=== PATIENT | female | born 1985 | race Caucasian/White ===

== ENCOUNTER 2016-09-18 19:00 | Emergency (ER) | payer OTHER ==
[2016-09-18 19:16] VITALS: BP 98/56
[2016-09-18] MEDS ORDERED: Alum Hydrox/Mag Hydrox/Simeth 30 ML, Lidocaine 2% 15 ML PO STA ×2 (19:55)
--- NOTE | 2016-09-18 20:40 | EDM.PDOC ---
ED HPI Trauma - General Chief Complaint: Upper Extremity Injury/Pain Stated Complaint: PAIN ON RIGHT SIDE OF NECK INTO WRIST Time Seen by Provider: 09/18/16 19:31 Source: Reports: Patient, RN notes reviewed History Limitations: Reports: No limitations - History of Present Illness INITIAL COMMENTS - FREE TEXT/NARRATIVE: The patient states that she is at approximately 14 weeks gestation. She states that she woke around 04:00 yesterday morning, 09/17/2016 with pain on the right side of her neck, extending to her right shoulder. It has since extended down to her right wrist. It is sharp in character, and constant. She has not identified any modifiers, such as with head/neck position. She also developed epigastric pain whenever she takes a deep breath, yesterday, 2016. She also mentioned in passintg that her right hand has been feeling tingling/numb, on and off, for the past several weeks. She reports morning sickness, adequately treated with Diclegis. She has frequent constipation. No recent fever, diarrhea, or urinary symptoms. No prior similar symptoms. 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: Polycystic Ovaries, Other OB/BYN History: Musculoskeletal History: Reports: Other (see below) (Desai cyst) Oncologic (Cancer) History: Reports: Cervix - Past Surgical History HEENT Surgical History: Reports: Oral surgery ([place] teeth extraction), Tonsillectomy GI Surgical History: Reports: EGD Female Surgical History: Reports: LEEP Musculoskeletal Surgical History: Reports: ORIF Social & Family History - Family History Family Medical History: Noncontributory Cardiac: Reports: Blood clots/VTE/DVT - Tobacco Use Smoking Status *Q: Current Some Day Smoker Years of Tobacco use: 5 Packs/Tins Daily: 0.1 Used Tobacco, but Quit: No Month Tobacco Last Used: 2 Second Hand Smoke Exposure: No - Caffeine Use Caffeine Use: Reports: None - Alcohol Use Alcohol Use History: No Days Per Week of Alcohol Use: 0 - Recreational Drug Use Recreational Drug Use: No - Living Situation & Occupation Living situation: Reports: , with spouse, with family 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) Review of Systems - Review of Systems Review Of Systems: See Below Constitutional: Reports: no symptoms Eyes: Reports: no symptoms Ears: Reports: no symptoms Nose: Reports: no symptoms Mouth/Throat: Reports: no symptoms Respiratory: Reports: No Symptoms Cardiovascular: Reports: no symptoms GI/Abdominal: Reports: Nausea (Morning sickness), Vomiting (Morning sickness) Genitourinary: Reports: no symptoms Musculoskeletal: Reports: no symptoms Skin: Reports: no symptoms Neurological: Reports: No Symptoms Psychiatric: Reports: no symptoms Trauma Exam - Physical Exam Exam: See Below Exam Limited By: No limitations General Appearance: Reports: alert, WD/WN, no apparent distress Head: Reports: atraumatic, normocephalic Eyes: bilateral eye: EOMI, normal inspection Ears: Reports: normal external exam, hearing grossly normal Nose: Reports: normal inspection, no blood Throat/Mouth: Reports: Normal inspection, Normal lips, Normal voice, No airway compromise Neck: Reports: non-tender, full range of motion, normal alignment, normal inspection, other (No exacerbation of symptoms with turning the head fully to the left or right, causing the chin to the chest, or fully extending the head. No exacerbation of symptoms with compressing the cervical spine.) Respiratory Exam: Reports: no respiratory distress, lungs clear, normal breath sounds Cardiovascular: Reports: normal peripheral pulses, regular rate, rhythm, no edema, no gallop, no JVD, no murmur, no rub GI/Abdominal: Reports: normal bowel sounds, soft, non tender, no organomegaly, no distention, no abnormal bruit, no mass, other (The patient confirms that her pain is in the epigastric region, but her abdomen is entirely nontender) Back: Reports: full range of motion, normal inspection, non-tender. Denies: CVA tenderness (R), CVA tenderness (L) Extremities: Reports: no evidence of injury, normal range of motion, non-tender , no pedal edema Neurologic: Reports: no motor/sensory deficits, alert, oriented x 3 Skin: Reports: Normal color, Warm/dry Course - Vital Signs Last Recorded V/S: Last Vital Signs Temp 37.1 C 09/18/16 19:11 Pulse 95 09/18/16 19:11 Resp 18 09/18/16 19:11 BP 98/56 L 09/18/16 19:11 Pulse Ox 97 09/18/16 19:11 - Orders/Labs/Meds Orders: Active Orders 24 hr Category Date Time Status CULTURE URINE [RM] Stat Lab 09/18/16 21:14 Received Labs: Laboratory Tests 09/18/16 09/18/16 09/18/16 Range/Units 21:14 21:32 21:32 WBC 12.34 H (3.98-10.04) K/mm3 RBC 3.52 L (3.98-5.22) M/mm3 Hgb 10.6 L (11.2-15.7) gm/L Hct 31.6 L (34.1-44.9) % MCV 89.8 (79.4-94.8) fl MCH 30.1 (25.6-32.2) pg MCHC 33.5 (32.2-35.5) g/dl RDW Std Deviation 41.1 (36.4-46.3) fL Plt Count 275 (182-369) K/mm3 MPV 9.5 (9.4-12.3) fl Neutrophils % (Manual) 56 (40-60) % Band Neutrophils % 4 (0-10) % Lymphocytes % (Manual) 34 (20-40) % Atypical Lymphs % 0 % Monocytes % (Manual) 1 L (2-10) % Eosinophils % (Manual) 4 (0.7-5.8) % Basophils % (Manual) 1 (0.1-1.2) Toxic Granulation Few Platelet Estimate Adequate RBC Morph Comment Normal PT 10.1 (8.0-13.0) SECONDS INR 0.93 Sodium (136-145) mEq/L Potassium (3.5-5.1) mEq/L Chloride (98-107) mEq/L Carbon Dioxide (21-32) mEq/L Anion Gap (5-15) BUN (7-18) mg/dL Creatinine (0.55-1.02) mg/dL Est Cr Clr Drug Dosing mL/min Estimated GFR (MDRD) (>60) mL/min BUN/Creatinine Ratio (14-18) Glucose (74-106) mg/dL Calcium (8.5-10.1) mg/dL Urine Color Yellow (Yellow) Urine Appearance Slt cloudy H (Clear) Urine pH 7.0 (5.0-8.0) Ur Specific [place] 1.015 (1.005-1.030) Urine Protein Negative (Negative) Urine Glucose (UA) Negative (Negative) Urine Ketones Negative (Negative) Urine Occult Blood Negative (Negative) Urine Nitrite Negative (Negative) Urine Bilirubin Negative (Negative) Urine Urobilinogen 0.2 (0.2-1.0) Ur Leukocyte Esterase 2+ H (Negative) Urine RBC 0-5 (0-5) /hpf Urine WBC 40-50 H (0-5) /hpf Ur Squamous Epith Cells 40-50 H (0-5) /hpf Urine Bacteria Moderate H (FEW) /hpf Urine Mucus Not seen (FEW) /hpf 09/18/16 Range/Units 21:32 WBC (3.98-10.04) K/mm3 RBC (3.98-5.22) M/mm3 Hgb (11.2-15.7) gm/L Hct (34.1-44.9) % MCV (79.4-94.8) fl MCH (25.6-32.2) pg MCHC (32.2-35.5) g/dl RDW Std Deviation (36.4-46.3) fL Plt Count (182-369) K/mm3 MPV (9.4-12.3) fl Neutrophils % (Manual) (40-60) % Band Neutrophils % (0-10) % Lymphocytes % (Manual) (20-40) % Atypical Lymphs % % Monocytes % (Manual) (2-10) % Eosinophils % (Manual) (0.7-5.8) % Basophils % (Manual) (0.1-1.2) Toxic Granulation Platelet Estimate RBC Morph Comment PT (8.0-13.0) SECONDS INR Sodium 138 (136-145) mEq/L Potassium 3.9 (3.5-5.1) mEq/L Chloride 105 (98-107) mEq/L Carbon Dioxide 25 (21-32) mEq/L Anion Gap 11.9 (5-15) BUN 7 (7-18) mg/dL Creatinine 0.6 (0.55-1.02) mg/dL Est Cr Clr Drug Dosing 119.47 mL/min Estimated GFR (MDRD) > 60 (>60) mL/min BUN/Creatinine Ratio 11.7 L (14-18) Glucose 83 (74-106) mg/dL Calcium 8.7 (8.5-10.1) mg/dL Urine Color (Yellow) Urine Appearance (Clear) Urine pH (5.0-8.0) Ur Specific [place] (1.005-1.030) Urine Protein (Negative) Urine Glucose (UA) (Negative) Urine Ketones (Negative) Urine Occult Blood (Negative) Urine Nitrite (Negative) Urine Bilirubin (Negative) Urine Urobilinogen (0.2-1.0) Ur Leukocyte Esterase (Negative) Urine RBC (0-5) /hpf Urine WBC (0-5) /hpf Ur Squamous Epith Cells (0-5) /hpf Urine Bacteria (FEW) /hpf Urine Mucus (FEW) /hpf Meds: Medications Discontinued Medications Generic Name Dose Route Start Last Admin Trade Name Freq PRN Reason Stop Dose Admin Al Hydroxide/Mg Hydroxide 30 0 ml 09/18/16 19:55 09/18/16 20:22 ml/ Lidocaine HCl 15 ml PO 09/18/16 19:56 Not Given ONETIME STA - Re-Assessments/Exams Free Text/Narrative Re-Assessment/Exam: 09/18/16 20:31 I find 3 issues with the patient: 1. Her right neck pain, radiating down her right upper extremity appears to be due to a muscle spasm, not cervical radiculopathy. A muscle relaxant would be indicated, however, is contraindicated with her . 2. Her epigastric pain is likely related to acid reflux, made more prevalent with . 3. Her recurrent right hand paresthesia may be due to carpal tunnel syndrome, also made more prevalent with . As the symptoms tend to resolve after delivery, current guidelines do not recommend corticosteroid injection or surgical release as a first line treatment. They recommend the patient splint the wrist at night in the neutral position or slight extension. The wrist splints may also be worn during the day in more severe cases. After performing my history and physical exam, I explained my medical impressions to the patient and recommended that we give her a GI cocktail to see if that helped her epigastric pain, and a muscle relaxant to treat her right neck and arm pain. I stated that I would check on the safety of these medicines before ordering them. The patient was agreeable. As I was checking the computer for categories, the patient's nurse informed me that the patient was requesting a different provider, stating that she was angry at me because I did not give her pain medication when I set her broken ankle on a previous visit. Checking the medical record, however, I see that I saw the patient for a mildly displaced trimalleolar fracture on 09/02/2015, and that I DID order Dilaudid prior to placing a posterior mold, and I then discharged her home with a prescription for [place]. If she did not receive the Dilaudid that I ordered, that is a different issue. Because he have limited resources, especially when we are busy, such as tonight , and to discourage drug seeking behavior, this Emergency Department does not allow patients to change their assigned provider. Options for the patient included continued care with me, being discharged and re-admitted, taking her chances that she may see another provider, or going to a different ED. The patient chose to continue care with me. I ordered a GI cocktail ( category B), however, the patient then refused it. 09/18/16 21:11 The above was explained to the patient and her . When asked if the patient had any questions, she replied "Just get me out of here". I entered discharge instructions and orders, however, a few minutes later, the patient's nurse informed me that the patient is requesting a number of tests, including blood work and a urinalysis. In my medical opinion, I do not believe that any tests, no matter what the results, will alter my diagnoses, however, the patient does not appear to be interested in my medical opinion. She has become hostile. As an act of service recovery, I have agreed to order whatever tests she desires. She has requested a CBC, BMP, PT/INR, U/A, and urine culture. 09/18/16 23:15 Test results brought to the patient and her , and I offered to interpret them for her, however, as above, none of these tests relate to any of the patient's presenting complaints, and therefore do not shed any light on on her current condition, and do not change the diagnoses I made earlier. When I attempted to explain this to the patient, the patient's became hostile and threatening. Departure - Departure Time of Disposition: 23:17 Disposition: Home, Self-Care 01 Condition: good Clinical Impression: Cervical strain, GERD (gastroesophageal reflux disease), Carpal tunnel syndrome on right Instructions: Carpal Tunnel Syndrome, [id number], Cervical Strain and Sprain With Rehab-SportsMed, Gastroesophageal Reflux Disease, Adult Referrals: Fany Nolen PA [Primary Care Provider] - Forms: ED Department Discharge Additional Instructions: You were seen in the emergency room tonight for 3 main problems: Right neck pain , radiating down your right arm, pain in the upper center of the abdomen, and recurrent right hand tingling and numbness. Based on your history and examination, your right neck pain radiating down your right arm is MOST LIKELY due to a muscle spasm, not a bulging disc in your neck. Ordinarily, we would treat this with a muscle relaxant, however, since you are , we cannot. There is no harm using a heating pad, stretching, and massage. Your upper center abdominal pain is MOST LIKELY due to worsening acid reflux, common in . We recommended giving you a GI cocktail (safe with ) to see if your symptoms improved, however, you declined the GI cocktail. Consider increasing your Pepcid to one tablet twice a day. If that fails to improve your symptoms, you may need to try a stronger medicine, such as a proton pump inhibitor. These are likely safe with , however, we recommend that you see a surgeon or a stomach doctor ([place]) prior to starting such a medicine. The recurrent tingling and numbness in your right hand is MOST LIKELY due to carpal tunnel syndrome, also more prevalent during , however, the only way to be sure would be to undergo special nerve conduction studies. We recommend you wear a wrist splint at night, keeping the wrist in a neutral or slightly extended position. You can also wear this during the day, if needed. Current guidelines do not recommend more aggressive treatment, such as steroid injections or surgery, since most carpal tunnel syndromes resolve after you deliver your baby. You requested a CBC, BMP, INR, urinalysis, and urine culture. In our medical opinion, none of these tests relate to any of the issues that you presented to the ER for, and do not change the diagnosis. Our interpretation is that you have a mildly elevated WBC count, but no left shift, consistent with demargination, not an infection. Your mild anemia is dilutional, consistent with . You do not have any electrolyte abnormalities or kidney insufficiency, you are not dehydrated, and your urinalysis is consistent with contamination, and is therefore not interpretable tonight. A urine culture has been sent. Please followup with your PCP, Fany Nolen, in about 3 days, to check on your urine culture results. If any other problems, please do not hesitate to return to the ER. - My Orders Last 24 Hours: My Active Orders 09/18/16 21:14 CULTURE URINE [RM] Stat - Assessment/Plan Last 24 Hours: My Active Orders 09/18/16 21:14 CULTURE URINE [RM] Stat
== END 2016-09-18 23:30 | disposition home or self-care (01) ==
LOC: JD.ED 19:00
DX: O9A.211 Injury, poisoning and certain other consequences of external causes complicating pregnancy, first trimester (principal); S13.4XXA Sprain of ligaments of cervical spine, initial encounter; G56.01 Carpal tunnel syndrome, right upper limb; K21.9 Gastro-esophageal reflux disease without esophagitis; Z3A.14 14 weeks gestation of pregnancy; Z98.890 Other specified postprocedural states; Z88.8 Allergy status to other drugs, medicaments and biological substances
CPT/HCPCS: 36415; 80048; 81001; 85025; 85610; 87086; 99283

== ENCOUNTER 2016-09-19 16:29 | Emergency (ER) | payer OTHER ==
--- NOTE | 2016-09-19 17:41 | EDM.PDOC ---
ED HISTORY OF PRESENT ILLNESS - General Chief Complaint: Respiratory Problem Stated Complaint: SOB,PN WITH INHALATION,R NECK PN Time Seen by Provider: 09/19/16 16:46 Source of Information: Reports: Patient, Family (spouse), RN notes reviewed - History of Present Illness INITIAL COMMENTS - FREE TEXT/NARRATIVE: 31 year old female comes in with frequent cough, chest pain with coughing and deep breathing. Of note she is about 14 wks . The chest pain is anterior lower chest, R lateral chest and also base of R neck. She presented to ED last evening with much of the same pain, see that note for details. She did end up having some labs and a Ua done. Ua showed WBC's and bacteria but a contaminated sample, Urine culture ordered. She continues to have dysuria today. She had nausea, vomiting 2 days ago but that is gone. No fever or chills. No vaginal bleeding or spotting. - Related Data Allergies/ADRs: Allergies Allergy/AdvReac Type Severity Reaction Status Date / Time promethazine [From Phenergan] Allergy Anxiety Verified 09/18/16 19:10 Home Meds: Home Meds Pnv No.122/Iron/Folic Acid [ Multi Tablet] 1 tab PO DAILY 09/11/15 [ History] Doxylamine/Pyridoxine HCl [Pedro Saenz 10-10 mg Tablet] 1 each PO BID PRN #30 tablet. 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 Neurological History: Reports: Migraines, Other (see below) Other Neuro History: freq dizziness Psychiatric History: Reports: None Endocrine/Metabolic History: Reports: None Hematologic History: Reports: Other (see below) (LLE DVT October 2015) Immunologic History: Reports: None Oncologic (Cancer) History: Reports: Cervix - Infectious Disease History Infectious Disease History: Reports: None - Past Surgical History HEENT Surgical History: Reports: Oral surgery, Tonsillectomy GI Surgical History: Reports: EGD Female Surgical History: Reports: LEEP Musculoskeletal Surgical History: Reports: ORIF Social & Family History - Family History Family Medical History: Noncontributory Cardiac: Reports: Blood clots/VTE/DVT - Tobacco Use Smoking Status *Q: Current Every Day Smoker Years of Tobacco use: 11 Packs/Tins Daily: 0.5 Used Tobacco, but Quit: No Month Tobacco Last Used: 2 Second Hand Smoke Exposure: No - Caffeine Use Caffeine Use: Reports: Coffee - Alcohol Use Days Per Week of Alcohol Use: 0 - Recreational Drug Use Recreational Drug Use: No - Living Situation & Occupation Living situation: Reports: , with spouse, with family 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 Denies: Rhinitis Respiratory: Reports: Pleuritic Chest Pain, Cough. Denies: Shortness of Breath , Wheezing, Sputum Cardiovascular: Reports: Chest pain (with deep breathing and coughing) GI/Abdominal: Reports: Vomiting (2 days ago, gone). Denies: Abdominal pain : Reports: dysuria Musculoskeletal: Denies: back pain, joint pain Skin: Denies: rash Neurological: Reports: No Symptoms ED EXAM, GENERAL - Physical Exam Exam: See Below General Appearance: alert, no apparent distress Eye Exam: bilateral eye: PERRL Nose: normal inspection Throat/Mouth: Normal inspection, Normal oropharynx Head: No: facial swelling Neck: supple, full range of motion. No: lymphadenopathy (L), lymphadenopathy (R ) Respiratory/Chest: no respiratory distress, lungs clear, normal breath sounds Cardiovascular: regular rate, rhythm GI/Abdominal: other (mild tenderness upper mid abd and RUQ, lower abd soft and nontender). No: guarding, rebound Back Exam: No: CVA tenderness (L), CVA tenderness (R) Neurological: alert, oriented, no motor/sensory deficits Skin Exam: Warm, Dry, Normal color Course - Vital Signs Last Recorded V/S: Last Vital Signs Temp 97.6 F 09/19/16 16:35 Pulse 87 09/19/16 16:35 Resp 18 09/19/16 16:35 BP 105/63 09/19/16 16:35 Pulse Ox 98 09/19/16 16:35 - Orders/Labs/Meds Orders: Active Orders 24 hr Category Date Time Status Chest 1V Frontal [CR] Stat Exams 09/19/16 17:06 Taken - Re-Assessments/Exams Free Text/Narrative Re-Assessment/Exam: 09/19/16 17:47 patient and have significant concern over cause of cough, chest and neck pain. I do not hear pneumonia, cough is nonproductive but with referred pain to base of neck cannot rule out an intrathoracic problem. Therefore single view CXR has been ordered. Pt and spouse want to have that done. CXR is normal. I checked with lab. First read of the urine culture will not be done until tomorrow morning. Have given patient option of check a cath urine now to get a better sample or otherwise wait for culture results. She chooses to wait. Discharge instr. as documented. Departure - Departure Time of Disposition: 17:38 Disposition: Home, Self-Care 01 Clinical Impression: Bronchitis, Pleurisy, Chest wall pain, First trimester Referrals: Fany Nolen PA [Primary Care Provider] - Forms: ED Department Discharge Additional Instructions: Vaporizer, humidifier, steam as needed, continue vitamins, consider extra vitamin C once daily for the next week, Call clinic in AM, ask to have Fany's nurse check on your urine culture from last evening. The first read on that will be done tomorrow morning. Drink plenty of water. Follow up clinic as needed. Return to ED as needed. - My Orders Last 24 Hours: My Active Orders 09/19/16 17:06 Chest 1V Frontal [CR] Stat - Assessment/Plan Last 24 Hours: My Active Orders 09/19/16 17:06 Chest 1V Frontal [CR] Stat
[2016-09-19 17:59] VITALS: BP 113/74
--- NOTE | 2016-09-20 07:08 | CR ---
Chest: Portable view of the chest was obtained. Comparison: Previous chest x-ray of 04/07/15. Heart size and mediastinum are normal. Lungs are clear. Minimal scoliosis noted within the spine. Impression: 1. Nothing acute is identified on portable chest x-ray. Diagnostic code #1
== END 2016-09-19 17:55 | disposition home or self-care (01) ==
LOC: JD.ED 16:29
DX: O99.511 Diseases of the respiratory system complicating pregnancy, first trimester (principal); J40 Bronchitis, not specified as acute or chronic; O99.89 Other specified diseases and conditions complicating pregnancy, childbirth and the puerperium; R09.1 Pleurisy; O99.331 Smoking (tobacco) complicating pregnancy, first trimester; F17.210 Nicotine dependence, cigarettes, uncomplicated; Z86.718 Personal history of other venous thrombosis and embolism; Z85.41 Personal history of malignant neoplasm of cervix uteri; Z98.890 Other specified postprocedural states; Z88.8 Allergy status to other drugs, medicaments and biological substances
CPT/HCPCS: 71010; 71010-26; 99284; 99285

== ENCOUNTER 2016-12-23 07:18 | Emergency (ER) | payer BC, OTHER ==
[2016-12-23 07:54] VITALS: BP 103/66
[2016-12-23] MEDS ORDERED: Bupivacaine Liposome 1.3% 20 ML SDV INFILT ONE (08:07)
[2016-12-23] MEDS ORDERED: Bupivacaine 0.5%/EPINEPHrine 1:200,000 30 ML SDV INJECT ONE (08:13)
[2016-12-23] MEDS ORDERED: Lidocaine 1% with EPINEPHrine 1:100,000 20 ML MDV INJECT ONE (08:26)
[2016-12-23] MEDS ORDERED: Bupivacaine 0.5% 10 ML SDV INJECT ONE (08:28)
--- NOTE | 2016-12-23 09:02 | EDM.PDOC ---
ED HPI GENERAL MEDICAL PROBLEM - General Chief Complaint: Gastrointestinal Problem Stated Complaint: HEMMORHOID Time Seen by Provider: 12/23/16 07:46 Source of Information: Reports: Patient, RN Notes Reviewed History Limitations: Reports: No Limitations - History of Present Illness INITIAL COMMENTS - FREE TEXT/NARRATIVE: The patient states that she is 28 weeks gestation. She states that she developed hemorrhoidal pain Th evening, 12/21/2016. She states that she has tried all sorts of dwhd-ueh-treuazs treatments, including Preparation H, Tucks, witch jeannette, tea tree oil, and sitz baths with epson salts. She states that nothing is relieving the pain. She was seen at the walk-in clinic last night, where they found a thrombosed external hemorrhoid, but said that they could not treated, and recommended that she come to the ED. The patient states that she has had hemorrhoids with prior pregnancies, but that they usually resolve within a week. The patient's justice professor is Dr. Roberts, who recommended home remedies to the patient. 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: Polycystic Ovaries, : 3 Para: 2 Musculoskeletal History: Reports: Other (See Below) (Desai cyst) Oncologic (Cancer) History: Reports: Cervix - Past Surgical History HEENT Surgical History: Reports: Oral Surgery ([place] teeth extraction), Tonsillectomy GI Surgical History: Reports: EGD Female Surgical History: Reports: LEEP Musculoskeletal Surgical History: Reports: ORIF Social & Family History - Family History Family Medical History: Noncontributory Cardiac: Reports: Blood Clots/VTE/DVT - Tobacco Use Smoking Status *Q: Current Some Day Smoker Years of Tobacco use: 11 Packs/Tins Daily: 0.5 Second Hand Smoke Exposure: No - Caffeine Use Caffeine Use: Reports: Coffee - Alcohol Use Alcohol Use History: No Days Per Week of Alcohol Use: 0 - Recreational Drug Use Recreational Drug Use: No - Living Situation & Occupation Living situation: Reports: , with Spouse, with Family 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) ED ROS GENERAL - Review of Systems Review Of Systems: See Below Constitutional: Reports: No Symptoms HEENT: Reports: No Symptoms Respiratory: Reports: No Symptoms Cardiovascular: Reports: No Symptoms Endocrine: Reports: No Symptoms GI/Abdominal: Reports: No Symptoms : Reports: No Symptoms Musculoskeletal: Reports: No Symptoms Skin: Reports: No Symptoms Neurological: Reports: No Symptoms Psychiatric: Reports: No Symptoms Hematologic/Lymphatic: Reports: No Symptoms Immunologic: Reports: No Symptoms ED EXAM, GENERAL - Physical Exam Exam: See Below Exam Limited By: No Limitations General Appearance: Alert, WD/WN, Mild Distress (Appears uncomfortable) Rectal (Female) Exam: Hemorrhoids (Thrombosed external hemorrhoid posterior left anus. Non-thrombosed hemorrhoid slightly anterior to the thrombosed hemorrhoid, and a non-thrombosed hemorrhoid to the right posterior anus.) ED GENERAL MEDICAL PROCEDURES - Additional/Other Procedure(s) Other (Free Text) Procedure(s): Procedure: Lancing of external hemorrhoid Anesthesia: 8 mL of 50:50 admixture of lidocaine 1% with epinephrine and bupivacaine 0.5% without epinephrine Area cleaned with Betadine. Perianal anesthesia infiltrated at the base of the thrombosed hemorrhoid. Hemorrhoid incised with a #11 blade. Blood clot removed manually. Patient tolerated the procedure well. Course - Vital Signs Last Recorded V/S: Last Vital Signs Temp 36.7 C 12/23/16 07:48 Pulse 82 12/23/16 07:48 Resp 12 12/23/16 07:48 BP 103/66 12/23/16 07:48 Pulse Ox 100 12/23/16 07:48 - Orders/Labs/Meds Meds: Medications Discontinued Medications Generic Name Dose Route Start Last Admin Trade Name Freq PRN Reason Stop Dose Admin Bupivacaine HCl 10 ml 12/23/16 08:28 12/23/16 08:36 Sensorcaine-Mpf 0.5% INJECT 12/23/16 08:29 10 ml ONETIME ONE Administration Bupivacaine HCl/Epinephrine Bitart 30 ml 12/23/16 08:13 Marcaine 0.5%/Epinephrine 1:200,000 INJECT 12/23/16 08:14 ONETIME ONE Bupivacaine Liposome 20 ml 12/23/16 08:07 Exparel INFILT 12/23/16 08:08 ONETIME ONE Lidocaine/Epinephrine 20 ml 12/23/16 08:26 12/23/16 08:36 Xylocaine 1% With Epinephrine 1:100,000 INJECT 12/23/16 08:27 20 ml ONETIME ONE Administration - Re-Assessments/Exams Free Text/Narrative Re-Assessment/Exam: 12/23/16 08:57 The patient's thrombosed left external hemorrhoid was lanced and the blood clot removed. The patient is already feeling better. I will discharge her home with recommendations to avoid constipation with Metamucil or Citrobacter, etc., sitz baths, and nxoh-[id number] hemorrhoidal wipes. Departure - Departure Time of Disposition: 08:58 Disposition: Home, Self-Care 01 Condition: Good Clinical Impression: Thrombosed external hemorrhoid - Discharge Information Instructions: Hemorrhoids, [id number] Referrals: Fany Nolen PA [Primary Care Provider] - Forms: ED Department Discharge Additional Instructions: You were seen in the emergency room for a thrombosed external hemorrhoid. The hemorrhoid was lanced in the ER. We recommend you avoid constipation with stool softeners such as Metamucil, MiraLAX, etc. We recommend you perform sitz baths 2 or 3 times a day You may use ifyh-ewl-evzxjco hemorrhoidal creams or wipes, as needed. When convenient, you may follow-up with the surgeon Dr. Elsy Burch to discuss definitive treatment, ie, excision of the hemorrhoids.. If any other problems, please do not hesitate to return to the ER.
== END 2016-12-23 09:40 | disposition home or self-care (01) ==
LOC: JD.ED 07:18
DX: O22.43 Hemorrhoids in pregnancy, third trimester (principal); K21.9 Gastro-esophageal reflux disease without esophagitis; O99.333 Smoking (tobacco) complicating pregnancy, third trimester; F17.210 Nicotine dependence, cigarettes, uncomplicated; Z79.899 Other long term (current) drug therapy; Z98.890 Other specified postprocedural states; Z3A.28 28 weeks gestation of pregnancy
CPT/HCPCS: 46083; 99282-25; 99283

== ENCOUNTER 2017-03-09 23:10 | Inpatient (IN) | payer BC ==
[2017-03-10] MEDS ORDERED: Ondansetron 4 MG Tab.DIS PO PRN (00:10)
[2017-03-10] MEDS ORDERED: Ondansetron 4 MG/2 ML SDV IVPUSH PRN ×2 (01:20→03:06)
[2017-03-10] MEDS ORDERED: Sodium Chloride 0.9% 10 ML Syringe FLUSH PRN (01:20)
[2017-03-10] MEDS: Lactated Ringers 1,000 ML IV SCH ×2 (02:10→03:45)
[2017-03-10] MEDS ORDERED: ePHEDrine 50 MG/ML SDV IVPUSH PRN (03:06)
[2017-03-10] MEDS ORDERED: fentaNYL 100 MCG/2 ML SDV EPIDUR PRN (03:06)
--- NOTE | 2017-03-10 03:12 | PCM.PREANE ---
Preanesthetic Assessment - Anesthesia/Transfusion/Family Hx Anesthesia History: Prior Anesthesia Without Reaction Family History of Anesthesia Reaction: No Transfusion History: No Prior Transfusion(s) Intubation History: Unknown - Review of Systems General: No Symptoms Pulmonary: No Symptoms (smokes 1-2 cigarettes/day times 9 years) Cardiovascular: No Symptoms Gastrointestinal: No Symptoms, Diarrhea, Nausea Neurological: No Symptoms Other: Reports: None - Physical Assessment NPO Status Date: 03/09/17 NPO Status Time: 19:30 Pulse: 105 O2 Sat by Pulse Oximetry: 98 Respiratory Rate: 16 Blood Pressure: 107/67 Temperature: 37 C Vital Signs: Last Vital Signs Temp 37.0 C 03/10/17 00:10 Pulse 105 H 03/10/17 00:10 Resp 16 03/10/17 00:10 BP 107/67 03/10/17 00:10 Pulse Ox 98 03/10/17 00:10 Height: 1.63 m Weight: 73.164 kg ASA Class: 2 Mental Status: Alert & Oriented x3 Airway Class: Mallampati = 2 Dentition: Reports: Normal Dentition (tongue piercing removed/ right lower lip piercing noted along with left nare.), Caries Thyro-Mental Finger Breadths: 3 Mouth Opening Finger Breadths: 3 ROM/Head Extension: Full Lungs: Clear to Auscultation, Normal Respiratory Effort Cardiovascular: Regular Rate, Regular Rhythm, No Murmurs - Lab Values: Laboratory Last Values WBC 21.41 K/mm3 (3.98-10.04) H 03/10/17 01:20 RBC 3.59 M/mm3 (3.98-5.22) L 03/10/17 01:20 Hgb 10.9 gm/L (11.2-15.7) L 03/10/17 01:20 Hct 32.5 % (34.1-44.9) L 03/10/17 01:20 MCV 90.5 fl (79.4-94.8) 03/10/17 01:20 MCH 30.4 pg (25.6-32.2) 03/10/17 01:20 MCHC 33.5 g/dl (32.2-35.5) 03/10/17 01:20 RDW Std Deviation 43.0 fL (36.4-46.3) 03/10/17 01:20 Plt Count 315 K/mm3 (182-369) 03/10/17 01:20 MPV 10.1 fl (9.4-12.3) 03/10/17 01:20 Neut % (Auto) 69.9 % (34.0-71.1) 03/10/17 01:20 Lymph % (Auto) 20.5 % (19.3-51.7) 03/10/17 01:20 [place] % (Auto) 7.2 % (4.7-12.5) 03/10/17 01:20 Eos % (Auto) 1.4 (0.7-5.8) 03/10/17 01:20 Baso % (Auto) 0.2 % (0.1-1.2) 03/10/17 01:20 Neut # (Auto) 14.96 K/mm3 (1.56-6.13) H 03/10/17 01:20 Lymph # (Auto) 4.38 K/mm3 (1.18-3.74) H 03/10/17 01:20 [place] # (Auto) 1.54 K/mm3 (0.24-0.36) H 03/10/17 01:20 Eos # (Auto) 0.31 K/mm3 (0.04-0.36) 03/10/17 01:20 Baso # (Auto) 0.05 K/mm3 (0.01-0.08) 03/10/17 01:20 Urine Color Light yellow (Yellow) 03/10/17 00:15 Urine Appearance Clear (Clear) 03/10/17 00:15 Urine pH 6.0 (5.0-8.0) 03/10/17 00:15 Ur Specific [place] > or = 1.030 (1.005-1.030) 03/10/17 00:15 Urine Protein 1+ (Negative) H 03/10/17 00:15 Urine Glucose (UA) Negative (Negative) 03/10/17 00:15 Urine Ketones Negative (Negative) 03/10/17 00:15 Urine Occult Blood Negative (Negative) 03/10/17 00:15 Urine Nitrite Negative (Negative) 03/10/17 00:15 Urine Bilirubin Negative (Negative) 03/10/17 00:15 Urine Urobilinogen 0.2 (0.2-1.0) 03/10/17 00:15 Ur Leukocyte Esterase 1+ (Negative) H 03/10/17 00:15 Urine RBC 0-5 /hpf (0-5) 03/10/17 00:15 Urine WBC 5-10 /hpf (0-5) H 03/10/17 00:15 Ur Epithelial Cells 0-5 /hpf (0-5) 03/10/17 00:15 Urine Bacteria Few /hpf (FEW) 03/10/17 00:15 Urine Mucus Few /hpf (FEW) 03/10/17 00:15 Blood Type A POSITIVE 03/10/17 01:20 Gel Antibody Screen Negative 03/10/17 01:20 Above labs reviewed and noted. - Allergies Allergies/Adverse Reactions: Allergies Allergy/AdvReac Type Severity Reaction Status Date / Time promethazine [From Phenergan] AdvReac Anxiety Verified 12/25/16 07:01 - Anesthesia Plan Pre-Op Medication Ordered: None - Acknowledgements Anesthesia Type Planned: Epidural Pt an Appropriate Candidate for the Planned Anesthesia: Yes Alternatives and Risks of Anesthesia Discussed w Pt/Guardian: Yes Pt/Guardian Understands and Agrees with Anesthesia Plan: Yes PreAnesthesia Questionnaire - Past Health History Medical/Surgical History: Denies Medical/Surgical History HEENT History: Reports: None Cardiovascular History: Reports: Blood Clots/VTE/DVT Gastrointestinal History: Reports: Chronic Constipation, GERD Other Gastrointestinal History: constipation Genitourinary History: Reports: Renal Disease, Other (See Below) Other Genitourinary History: Pt reports "spongy kidney" 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: Polycystic Ovaries, , 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 , 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 Other OB/BYN History: Musculoskeletal History: Reports: Back Pain, Chronic Other Musculoskeletal History: Desai cyst Neurological History: Reports: Migraines Other Neuro History: freq dizziness Psychiatric History: Reports: None Endocrine/Metabolic History: Reports: None Hematologic History: Reports: Other (See Below) Immunologic History: Reports: None Oncologic (Cancer) History: Reports: Cervix - Infectious Disease History Infectious Disease History: Reports: None - Past Surgical History HEENT Surgical History: Reports: Oral Surgery, Tonsillectomy Cardiovascular Surgical History: Reports: None GI Surgical History: Reports: EGD Female Surgical History: Reports: D&C, LEEP, Other (See Below) Other Female Surgeries/Procedures: Colposcopy during this Musculoskeletal Surgical History: Reports: ORIF - SUBSTANCE USE Smoking Status *Q: Current Every Day Smoker Tobacco Use Within Last Twelve Months: Cigarettes Second Hand Smoke Exposure: No Days Per Week of Alcohol Use: 0 Recreational Drug Use History: No - HOME MEDS Home Medications: Home Meds Pnv No.122/Iron/Folic Acid [ Multi Tablet] 1 tab PO DAILY 09/11/15 [ History] - CURRENT (IN HOUSE) MEDS Current Meds: Current Medications Ephedrine Sulfate (Ephedrine Sulfate) 5 mg IVPUSH ASDIRECTED PRN PRN Reason: Hypotension Fentanyl (Sublimaze) 100 mcg EPIDUR Q3H PRN PRN Reason: Pain Fentanyl/Bupivacaine HCl (Fentanyl/Bupivacaine/Ns 2 Mcg-0.125% 100 Ml) 100 ml EPIDUR ASDIRECTED REED Lactated Ringer's (Ringers, Lactated) 1,000 mls @ 100 mls/hr IV ASDIRECTED REED Last Infusion: 03/10/17 02:10 Dose: 999 mls/hr Ondansetron HCl (Zofran Odt) 4 mg PO Q4H PRN PRN Reason: Nausea/Vomiting Last Admin: 03/10/17 00:30 Dose: 4 mg Ondansetron HCl (Zofran) 4 mg IVPUSH Q4H PRN PRN Reason: Nausea/Vomiting Ondansetron HCl (Zofran) 4 mg IVPUSH ONETIME PRN PRN Reason: Nausea/Vomiting Sodium Chloride (Saline Flush) 10 ml FLUSH ASDIRECTED PRN PRN Reason: Keep Vein Open
[2017-03-10] MEDS ORDERED: Bupivacaine/fentaNYL/NS 100 ML Bag EPIDUR SCH (03:15)
[2017-03-10] MEDS ORDERED: Loperamide 2 MG Cap PO PRN (03:21)
--- NOTE | 2017-03-10 08:02 | PCM.LDHP ---
L&D History of Present Illness - General Date of Service: 03/10/17 Admit Problem/Dx: Patient Status Order with Admit Dx/Problem 03/10/17 00:10 Patient Status [ADT] Routine 03/10/17 01:23 Patient Status [ADT] Routine Admission Diagnosis/Problem Admission Diagnosis/Problem Source of Information: Patient History Limitations: Reports: No Limitations - History of Present Illness Pain Score: 7 - Related Data Allergies/Adverse Reactions: Allergies Allergy/AdvReac Type Severity Reaction Status Date / Time promethazine [From Phenergan] AdvReac Anxiety Verified 12/25/16 07:01 Home Medications: Home Meds Pnv No.122/Iron/Folic Acid [ Multi Tablet] 1 tab PO DAILY 09/11/15 [ History] Past Medical History - Past Health History Medical/Surgical History: Denies Medical/Surgical History HEENT History: Reports: None Cardiovascular History: Reports: Blood Clots/VTE/DVT Gastrointestinal History: Reports: Chronic Constipation, GERD Other Gastrointestinal History: constipation Genitourinary History: Reports: Renal Disease, Other (See Below) Other Genitourinary History: Pt reports "spongy kidney" [employer]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: Polycystic Ovaries, , 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 , 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 Other OB/BYN History: Musculoskeletal History: Reports: Back Pain, Chronic Other Musculoskeletal History: Desai cyst Neurological History: Reports: Migraines Other Neuro History: freq dizziness Psychiatric History: Reports: None Endocrine/Metabolic History: Reports: None Hematologic History: Reports: Other (See Below) Immunologic History: Reports: None Oncologic (Cancer) History: Reports: Cervix - Infectious Disease History Infectious Disease History: Reports: None - Past Surgical History HEENT Surgical History: Reports: Oral Surgery, Tonsillectomy Cardiovascular Surgical History: Reports: None GI Surgical History: Reports: EGD Female Surgical History: Reports: D&C, LEEP, Other (See Below) Other Female Surgeries/Procedures: Colposcopy during this Musculoskeletal Surgical History: Reports: ORIF Social & Family History - Family History Family Medical History: Noncontributory Cardiac: Reports: Blood Clots/VTE/DVT - Tobacco Use Smoking Status *Q: Current Every Day Smoker Years of Tobacco use: 9 Packs/Tins Daily: 0.2 Used Tobacco, but Quit: No Month Tobacco Last Used: 2 Second Hand Smoke Exposure: No - Caffeine Use Caffeine Use: Reports: Coffee, Soda Other Caffeine Use: 2-3 per day - Alcohol Use Days Per Week of Alcohol Use: 0 - Recreational Drug Use Recreational Drug Use: No - Living Situation & Occupation Living situation: Reports: , with Spouse, with Family 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&P Review of Systems - Review of Systems: Review Of Systems: See Below General: Reports: No Symptoms HEENT: Reports: No Symptoms Pulmonary: Reports: No Symptoms Cardiovascular: Reports: No Symptoms Gastrointestinal: Reports: Diarrhea Genitourinary: Reports: No Symptoms Musculoskeletal: Reports: No Symptoms Skin: Reports: No Symptoms Psychiatric: Reports: No Symptoms Neurological: Reports: No Symptoms Hematologic/Lymphatic: Reports: No Symptoms Immunologic: Reports: No Symptoms L&D Exam - Exam Exam: See Below - Vital Signs Vital Signs: Last Vital Signs Temp 37 C 03/10/17 03:27 Pulse 105 H 03/10/17 03:27 Resp 16 03/10/17 03:27 BP 107/67 03/10/17 03:27 Pulse Ox 98 03/10/17 03:27 Weight: 73.164 kg - OB Specific Contraction Intensity: Mild to Moderate Heart Rate (FHR) Variability: Moderate (6-25 bmp) Presentation: Vertex - Boyle Score Boyle Score Cervix Position: Midposition Boyle Score Consistency: Medium Boyle Score Effacement: 51-70% Boyle Score Dilation: 3-4 cm Boyle Score 's Station: -2 Boyle Score Total: 7 - Exam General: Alert, Oriented HEENT: PERRLA, Conjunctiva Clear, EACs Clear, EOMI, Hearing Intact, Mucosa Moist & [place], Nares Patent, Normal Nasal Septum, Posterior Pharynx Clear, TMs Clear Neck: Supple, Trachea Midline Lungs: Clear to Auscultation, Normal Respiratory Effort Cardiovascular: Regular Rate, Regular Rhythm GI/Abdominal Exam: Normal Bowel Sounds, Soft, Non-Tender, No Organomegaly, No Distention, No Abnormal Bruit, No Mass, Pelvis Stable Rectal Exam: Normal Rectal Tone Genitourinary: Normal external exam, Normal bimanual exam, Normal speculum exam Extremities: Normal Inspection, Normal Range of Motion, Non-Tender, No Pedal Edema, Normal Capillary Refill Skin: Warm, Dry, Intact Neurological: Cranial Nerves Intact, Reflexes Equal Bilateral Psychiatric: Alert, Normal Affect, Normal Mood - Patient Data Lab Results Last 24 hrs: Laboratory Results - last 24 hr 03/10/17 03/10/17 03/10/17 Range/Units 00:15 01:20 01:20 WBC 21.41 H (3.98-10.04) K/mm3 RBC 3.59 L (3.98-5.22) M/mm3 Hgb 10.9 L (11.2-15.7) gm/L Hct 32.5 L (34.1-44.9) % MCV 90.5 (79.4-94.8) fl MCH 30.4 (25.6-32.2) pg MCHC 33.5 (32.2-35.5) g/dl RDW Std Deviation 43.0 (36.4-46.3) fL Plt Count 315 (182-369) K/mm3 MPV 10.1 (9.4-12.3) fl Neut % (Auto) 69.9 (34.0-71.1) % Lymph % (Auto) 20.5 (19.3-51.7) % [place] % (Auto) 7.2 (4.7-12.5) % Eos % (Auto) 1.4 (0.7-5.8) Baso % (Auto) 0.2 (0.1-1.2) % Neut # (Auto) 14.96 H (1.56-6.13) K/mm3 Lymph # (Auto) 4.38 H (1.18-3.74) K/mm3 [place] # (Auto) 1.54 H (0.24-0.36) K/mm3 Eos # (Auto) 0.31 (0.04-0.36) K/mm3 Baso # (Auto) 0.05 (0.01-0.08) K/mm3 Urine Color Light yellow (Yellow) Urine Appearance Clear (Clear) Urine pH 6.0 (5.0-8.0) Ur Specific [place] > or = 1.030 (1.005-1.030) Urine Protein 1+ H (Negative) Urine Glucose (UA) Negative (Negative) Urine Ketones Negative (Negative) Urine Occult Blood Negative (Negative) Urine Nitrite Negative (Negative) Urine Bilirubin Negative (Negative) Urine Urobilinogen 0.2 (0.2-1.0) Ur Leukocyte Esterase 1+ H (Negative) Urine RBC 0-5 (0-5) /hpf Urine WBC 5-10 H (0-5) /hpf Ur Epithelial Cells 0-5 (0-5) /hpf Urine Bacteria Few (FEW) /hpf Urine Mucus Few (FEW) /hpf Blood Type A POSITIVE Gel Antibody Screen Negative Result Diagrams: 03/10/17 01:20 Problem List Initiated/Reviewed/Updated: Yes Orders Last 24hrs: Active Orders 24 hr Category Date Time Status Patient Status Manage Transfer [TRANSFER] Routine ADT 03/10/17 07:55 Ordered Patient Status [ADT] Routine ADT 03/10/17 01:23 Active Activity as Tolerated [RC] PFP Care 03/10/17 01:21 Active Communication Order [RC] ASDIRECTED Care 03/10/17 01:21 Active Heart Tones [RC] ASDIRECTED Care 03/10/17 01:21 Active Non Stress Test [RC] PER UNIT ROUTINE Care 03/10/17 00:10 Active Notify Provider [RC] ASDIRECTED Care 03/10/17 03:06 Active Notify Provider [RC] PFP Care 03/10/17 01:21 Active Notify Provider [RC] PRN Care 03/10/17 01:21 Active Oxygen Therapy [RC] ASDIRECTED Care 03/10/17 03:06 Active Peripheral IV Care [RC] . DIRECTED Care 03/10/17 01:21 Active Pulse Oximetry [RC] ASDIRECTED Care 03/10/17 03:06 Active Vital Signs [RC] PER UNIT ROUTINE Care 03/10/17 00:10 Active Vital Signs [RC] PER UNIT ROUTINE Care 03/10/17 01:21 Active PATIENT RETYPE [BBK] Routine Lab 03/10/17 01:20 Results TYPE AND SCREEN [BBK] Routine Lab 03/10/17 01:20 Results Bupivacaine/fentaNYL/NS [fentaNYL/Bupivacaine/NS 2 MCG- Med 03/10/17 03:15 Active 0.125% 100 ML] 100 ml EPIDUR ASDIRECTED Lactated Ringers [Ringers, Lactated] 1,000 ml Med 03/10/17 01:30 Active IV ASDIRECTED Loperamide [Imodium] Med 03/10/17 03:21 Active 2 mg PO Q4H PRN Ondansetron [Zofran ODT] Med 03/10/17 00:10 Active 4 mg PO Q4H PRN Ondansetron [Zofran] Med 03/10/17 03:06 Active 4 mg IVPUSH ONETIME PRN Ondansetron [Zofran] Med 03/10/17 01:20 Active 4 mg IVPUSH Q4H PRN Sodium Chloride 0.9% [Saline Flush] Med 03/10/17 01:20 Active 10 ml FLUSH ASDIRECTED PRN ePHEDrine [ePHEDrine Sulfate] Med 03/10/17 03:06 Active 5 mg IVPUSH ASDIRECTED PRN fentaNYL [Sublimaze] Med 03/10/17 03:06 Active 100 mcg EPIDUR Q3H PRN Electronic Heart Tones Ext w TOCO [WOMSER] Oth 03/10/17 01:21 Ordered Routine Electronic Heart Tones Internal [WOMSER] Per Unit Oth 03/10/17 01:21 Ordered Routine Peripheral IV Insertion Adult [OM.PC] Routine Oth 03/10/17 01:21 Ordered Resuscitation Status Routine Resus Stat 03/10/17 00:10 Ordered Medication Orders Ephedrine Sulfate (Ephedrine Sulfate) 5 mg IVPUSH ASDIRECTED PRN PRN Reason: Hypotension Fentanyl (Sublimaze) 100 mcg EPIDUR Q3H PRN PRN Reason: Pain Last Admin: 03/10/17 03:45 Dose: 100 mcg Fentanyl/Bupivacaine HCl (Fentanyl/Bupivacaine/Ns 2 Mcg-0.125% 100 Ml) 100 ml EPIDUR ASDIRECTED [facility] Last Admin: 03/10/17 03:44 Dose: 100 ml Lactated Ringer's (Ringers, Lactated) 1,000 mls @ 100 mls/hr IV ASDIRECTED [facility] Last Admin: 03/10/17 03:45 Dose: 999 mls/hr Infusion: 03/10/17 03:11 Dose: 999 mls/hr Infusion: 03/10/17 02:10 Dose: 999 mls/hr Admin: 03/10/17 02:10 Dose: 100 mls/hr Loperamide HCl (Imodium) 2 mg PO Q4H PRN PRN Reason: Diarrhea Last Admin: 03/10/17 03:25 Dose: 2 mg Ondansetron HCl (Zofran Odt) 4 mg PO Q4H PRN PRN Reason: Nausea/Vomiting Last Admin: 03/10/17 00:30 Dose: 4 mg Ondansetron HCl (Zofran) 4 mg IVPUSH Q4H PRN PRN Reason: Nausea/Vomiting Ondansetron HCl (Zofran) 4 mg IVPUSH ONETIME PRN PRN Reason: Nausea/Vomiting Sodium Chloride (Saline Flush) 10 ml FLUSH ASDIRECTED PRN PRN Reason: Keep Vein Open Assessment/Plan Comment:: Term labor. Diarrhea since membrane stripping. Plan epidural prn. Anticipate
--- NOTE | 2017-03-10 08:07 | PCM.DEL ---
L & D Note - General Info Date of Service: 03/10/17 - Delivery Note Labor: Spontaneous, Augmented by ARM Delivery Outcome: Livebirth Infant Delivery Method: Spontaneous Vaginal Delivery Presentation: Vertex Laceration: None Placenta: Intact, Spontaneous Score 1 min: 8 Score 5 min: 9 - Patient Data Vitals - Most Recent: Last Vital Signs Temp 37 C 03/10/17 03:27 Pulse 105 H 03/10/17 03:27 Resp 16 03/10/17 03:27 BP 107/67 03/10/17 03:27 Pulse Ox 98 03/10/17 03:27 Weight - Most Recent: 73.164 kg Lab Results Last 24 Hours: Laboratory Results - last 24 hr 03/10/17 03/10/17 03/10/17 Range/Units 00:15 01:20 01:20 WBC 21.41 H (3.98-10.04) K/mm3 RBC 3.59 L (3.98-5.22) M/mm3 Hgb 10.9 L (11.2-15.7) gm/L Hct 32.5 L (34.1-44.9) % MCV 90.5 (79.4-94.8) fl MCH 30.4 (25.6-32.2) pg MCHC 33.5 (32.2-35.5) g/dl RDW Std Deviation 43.0 (36.4-46.3) fL Plt Count 315 (182-369) K/mm3 MPV 10.1 (9.4-12.3) fl Neut % (Auto) 69.9 (34.0-71.1) % Lymph % (Auto) 20.5 (19.3-51.7) % Ada % (Auto) 7.2 (4.7-12.5) % Eos % (Auto) 1.4 (0.7-5.8) Baso % (Auto) 0.2 (0.1-1.2) % Neut # (Auto) 14.96 H (1.56-6.13) K/mm3 Lymph # (Auto) 4.38 H (1.18-3.74) K/mm3 Ada # (Auto) 1.54 H (0.24-0.36) K/mm3 Eos # (Auto) 0.31 (0.04-0.36) K/mm3 Baso # (Auto) 0.05 (0.01-0.08) K/mm3 Urine Color Light yellow (Yellow) Urine Appearance Clear (Clear) Urine pH 6.0 (5.0-8.0) Ur Specific [place] > or = 1.030 (1.005-1.030) Urine Protein 1+ H (Negative) Urine Glucose (UA) Negative (Negative) Urine Ketones Negative (Negative) Urine Occult Blood Negative (Negative) Urine Nitrite Negative (Negative) Urine Bilirubin Negative (Negative) Urine Urobilinogen 0.2 (0.2-1.0) Ur Leukocyte Esterase 1+ H (Negative) Urine RBC 0-5 (0-5) /hpf Urine WBC 5-10 H (0-5) /hpf Ur Epithelial Cells 0-5 (0-5) /hpf Urine Bacteria Few (FEW) /hpf Urine Mucus Few (FEW) /hpf Blood Type A POSITIVE Gel Antibody Screen Negative Med Orders - Current: Current Medications Ephedrine Sulfate (Ephedrine Sulfate) 5 mg IVPUSH ASDIRECTED PRN PRN Reason: Hypotension Fentanyl (Sublimaze) 100 mcg EPIDUR Q3H PRN PRN Reason: Pain Last Admin: 03/10/17 03:45 Dose: 100 mcg Fentanyl/Bupivacaine HCl (Fentanyl/Bupivacaine/Ns 2 Mcg-0.125% 100 Ml) 100 ml EPIDUR ASDIRECTED [facility] Last Admin: 03/10/17 03:44 Dose: 100 ml Lactated Ringer's (Ringers, Lactated) 1,000 mls @ 100 mls/hr IV ASDIRECTED [facility] Last Admin: 03/10/17 03:45 Dose: 999 mls/hr Loperamide HCl (Imodium) 2 mg PO Q4H PRN PRN Reason: Diarrhea Last Admin: 03/10/17 03:25 Dose: 2 mg Ondansetron HCl (Zofran Odt) 4 mg PO Q4H PRN PRN Reason: Nausea/Vomiting Last Admin: 03/10/17 00:30 Dose: 4 mg Ondansetron HCl (Zofran) 4 mg IVPUSH Q4H PRN PRN Reason: Nausea/Vomiting Ondansetron HCl (Zofran) 4 mg IVPUSH ONETIME PRN PRN Reason: Nausea/Vomiting Sodium Chloride (Saline Flush) 10 ml FLUSH ASDIRECTED PRN PRN Reason: Keep Vein Open - Problem List Review Problem List Initiated/Reviewed/Updated: Yes - My Orders Last 24 Hours: My Active Orders 03/10/17 00:10 Non Stress Test [RC] PER UNIT ROUTINE Vital Signs [RC] PER UNIT ROUTINE Ondansetron [Zofran ODT] 4 mg PO Q4H PRN Resuscitation Status Routine 03/10/17 01:20 PATIENT RETYPE [BBK] Routine TYPE AND SCREEN [BBK] Routine Ondansetron [Zofran] 4 mg IVPUSH Q4H PRN Sodium Chloride 0.9% [Saline Flush] 10 ml FLUSH ASDIRECTED PRN 03/10/17 01:21 Activity as Tolerated [RC] PFP Communication Order [RC] ASDIRECTED Heart Tones [RC] ASDIRECTED Notify Provider [RC] PFP Notify Provider [RC] PRN Peripheral IV Care [RC] . DIRECTED Vital Signs [RC] PER UNIT ROUTINE Electronic Heart Tones Ext w TOCO [WOMSER] Routine Electronic Heart Tones Internal [WOMSER] Per Unit Routine Peripheral IV Insertion Adult [OM.PC] Routine 03/10/17 01:23 Patient Status [ADT] Routine 03/10/17 01:30 Lactated Ringers [Ringers, Lactated] 1,000 ml IV ASDIRECTED 03/10/17 03:21 Loperamide [Imodium] 2 mg PO Q4H PRN 03/10/17 07:55 Patient Status Manage Transfer [TRANSFER] Routine - Plan Plan:: Term labor. Diarrhea since membrane stripping. Plan epidural prn. Anticipate
[2017-03-10] MEDS ORDERED: Oxytocin/Lactated Ringers 10 UNIT/1,000 ML BAG IV SCH (08:15)
[2017-03-10] MEDS ORDERED: Lanolin 100% Cream 7 GM Tube TOP PRN (09:16)
[2017-03-10] MEDS ORDERED: Witch Hazel Medicated Pads 100/Jar TOP PRN (09:16)
[2017-03-10] MEDS ORDERED: Benzocaine/Menthol 20%-0.5% Spray 56 GM Canister TOP PRN (09:16)
[2017-03-10] MEDS ORDERED: Docusate Sodium 100 MG Cap PO PRN (09:16)
--- NOTE | 2017-03-10 13:18 | PCM48HPAN ---
Post Anesthesia Note - EVALUATION WITHIN 48HRS OF ANESTHETIC Vital Signs in Normal Range: Yes Patient Participated in Evaluation: Yes Respiratory Function Stable: Yes Airway Patent: Yes Cardiovascular Function Stable: Yes Hydration Status Stable: Yes Pain Control Satisfactory: Yes Nausea and Vomiting Control Satisfactory: Yes Mental Status Recovered: Yes
[2017-03-10] MEDS ORDERED: Hydrocortisone 1% Crm 30 GM Tube TOP PRN (13:23)
[2017-03-10] MEDS: Loperamide 2 MG Cap PO PRN ×2 (13:41→17:46)
[2017-03-10] MEDS: Ibuprofen 600 MG Tab PO PRN ×2 (14:31→23:38)
[2017-03-10] MEDS: Acetaminophen/oxyCODONE 325-5 MG Tab PO PRN (18:41)
[2017-03-10] MEDS ORDERED: Bupivacaine 0.25% 10 ML SDV ONE (22:22)
[2017-03-11] MEDS: Acetaminophen/oxyCODONE 325-5 MG Tab PO PRN (02:17)
--- NOTE | 2017-03-11 04:42 | PCM.PNPP ---
- General Info Date of Service: 03/11/17 Functional Status: Reports: Pain Controlled - Review of Systems General: Reports: No Symptoms HEENT: Reports: No Symptoms Pulmonary: Reports: No Symptoms Cardiovascular: Reports: No Symptoms Gastrointestinal: Reports: Diarrhea, Other (hemorrhoids ) Genitourinary: Reports: No Symptoms Musculoskeletal: Reports: No Symptoms Skin: Reports: No Symptoms Neurological: Reports: No Symptoms Psychiatric: Reports: No Symptoms - General Info Date of Service: 03/11/17 - Patient Data Vital Signs - Most Recent: Last Vital Signs Temp 37.0 C 03/10/17 20:17 Pulse 87 03/10/17 20:17 Resp 18 03/10/17 20:17 BP 107/67 03/10/17 20:17 Pulse Ox 98 03/10/17 20:17 Weight - Most Recent: 73.164 kg I&O - Last 24 Hours: Intake & Output 03/10/17 03/10/17 03/11/17 14:59 22:59 06:59 Intake Total 2120 240 Balance 2120 240 Lab Results - Last 24 Hours: Laboratory Results - last 24 hr 03/10/17 03/10/17 Range/Units 00:15 15:45 Urine Opiates Screen Negative (NEGATIVE) Ur Buprenorphine Scrn Negative (NEGATIVE) Ur Oxycodone Screen Negative (NEGATIVE) Urine Methadone Screen Negative (NEGATIVE) Ur Propoxyphene Screen Negative (NEGATIVE) Ur Barbiturates Screen Negative (NEGATIVE) Ur Tricyclics Screen Negative (NEGATIVE) Ur Phencyclidine Scrn Negative (NEGATIVE) Ur Amphetamine Screen Negative (NEGATIVE) U Methamphetamines Scrn Negative (NEGATIVE) U Benzodiazepines Scrn Negative (NEGATIVE) U Cocaine Metab Screen Negative (NEGATIVE) U Marijuana (THC) Screen Negative (NEGATIVE) C.difficile [id number] Presumptive negative C. difficile Tox (PCR) Negative Micro Results - Last 24 Hours: Microbiology 03/10/17 15:45 Stool for WBCs - Final Stool / Feces Med Orders - Current: Current Medications Benzocaine/Menthol (Dermoplast Pain Relief [place]) 0 gm TOP ASDIRECTED PRN PRN Reason: Perineal Comfort Measure Last Admin: 03/10/17 12:08 Dose: 1 canister Docusate Sodium (Colace) 100 mg PO BID PRN PRN Reason: Constipation Emollient Ointment (Lansinoh Hpa) 0 gm TOP ASDIRECTED PRN PRN Reason: Sore Nipples Hydrocortisone (Hydrocortisone 1% Crm) 0 gm TOP ASDIRECTED PRN PRN Reason: Hemorrhoids Last Admin: 03/10/17 13:41 Dose: 1 tube Ibuprofen (Motrin) 600 mg PO Q6H PRN PRN Reason: Mild pain or fever Last Admin: 03/10/17 23:38 Dose: 600 mg Loperamide HCl (Imodium) 2 mg PO Q4H PRN PRN Reason: Diarrhea Last Admin: 03/10/17 17:46 Dose: 2 mg Oxycodone/Acetaminophen (Percocet 325-5 Mg) 2 tab PO Q6H PRN PRN Reason: Pain Last Admin: 03/11/17 02:17 Dose: 1 tab Witch Leah (Tucks) 1 pad TOP ASDIRECTED PRN PRN Reason: Hemorrhoid pain Last Admin: 03/10/17 12:08 Dose: 1 container Discontinued Medications Ephedrine Sulfate (Ephedrine Sulfate) 5 mg IVPUSH ASDIRECTED PRN PRN Reason: Hypotension Fentanyl (Sublimaze) 100 mcg EPIDUR Q3H PRN PRN Reason: Pain Last Admin: 03/10/17 03:45 Dose: 100 mcg Fentanyl/Bupivacaine HCl (Fentanyl/Bupivacaine/Ns 2 Mcg-0.125% 100 Ml) 100 ml EPIDUR ASDIRECTED [facility] Last Admin: 03/10/17 03:44 Dose: 100 ml Lactated Ringer's (Ringers, Lactated) 1,000 mls @ 100 mls/hr IV ASDIRECTED [facility] Last Admin: 03/10/17 03:45 Dose: 999 mls/hr Oxytocin/Lactated Ringer's (Pitocin In Lr 10 Units/1,000 Ml) 10 unit in 1,000 mls @ 500 mls/hr IV .CONTINUOUS RE[facility] Last Admin: 03/10/17 07:50 Dose: 500 mls/hr Loperamide HCl (Imodium) 2 mg PO Q4H PRN PRN Reason: Diarrhea Last Admin: 03/10/17 03:25 Dose: 2 mg Ondansetron HCl (Zofran Odt) 4 mg PO Q4H PRN PRN Reason: Nausea/Vomiting Last Admin: 03/10/17 00:30 Dose: 4 mg Ondansetron HCl (Zofran) 4 mg IVPUSH Q4H PRN PRN Reason: Nausea/Vomiting Ondansetron HCl (Zofran) 4 mg IVPUSH ONETIME PRN PRN Reason: Nausea/Vomiting Sodium Chloride (Saline Flush) 10 ml FLUSH ASDIRECTED PRN PRN Reason: Keep Vein Open - Interaction Disposition, : [place] to Nursery Support Person: Mother - Recovery Exam Fundal Tone: Firm Fundal Level: 1 Fingerbreadths Below Umbilicus Fundal Placement: Midline Lochia Amount: Small Lochia Color: Rubra/Red Perineum Description: Hemorrhoids, Other (see below) Other Perinuem Description: using tucks, dermoplast, and hemorrhoid cream. Episiotomy/Laceration: None Bladder Status: Voiding Urinary Elimination: Voided - Exam General: Alert, Oriented HEENT: Pupils Equal Neck: Supple Lungs: Clear to Auscultation, Normal Respiratory Effort Cardiovascular: Regular Rate, Regular Rhythm GI/Abdominal Exam: Normal Bowel Sounds, Soft, Non-Tender, No Organomegaly, No Distention, No Abnormal Bruit, No Mass, Pelvis Stable Extremities: Normal Inspection, Normal Range of Motion, Non-Tender, No Pedal Edema, Normal Capillary Refill Skin: Warm, Dry, Intact Wound/Incisions: Healing Well Neurological: No New Focal Deficit Psy/Mental Status: Alert, Normal Affect, Normal Mood - Problem List Review Problem List Initiated/Reviewed/Updated: Yes - My Orders Last 24 Hours: My Active Orders 03/10/17 09:16 Activity as Tolerated [RC] PER UNIT ROUTINE Vital Signs [RC] 04,12,20 Benzocaine/Menthol [Dermoplast Pain Relief [place]] See Dose Instructions TOP ASDIRECTED PRN Docusate Sodium [Colace] 100 mg PO BID PRN Ibuprofen [Motrin] 600 mg PO Q6H PRN Lanolin [Lansinoh HPA] See Dose Instructions TOP ASDIRECTED PRN Witch Leah [Tucks] 1 pad TOP ASDIRECTED PRN Assess Lochia [WOMSER] Per Unit Routine Assess Uterine Involution [WOMSER] Per Unit Routine Breast Pump [WOMSER] Per Unit Routine Heat Therapy [OM.PC] PRN Medication Administration Instruction [OM.PC] Routine Perineal Care [OM.PC] Per Unit Routine Sitz Bath [OM.PC] Per Unit Routine 03/10/17 13:22 Loperamide [Imodium] 2 mg PO Q4H PRN 03/10/17 13:23 Hydrocortisone [Hydrocortisone 1% Crm] 0 gm TOP ASDIRECTED PRN 03/10/17 15:45 CULTURE STOOL + SHIGATOX [RM] Routine 03/10/17 18:22 Acetaminophen/oxyCODONE [Percocet 325-5 MG] 2 tab PO Q6H PRN 03/10/17 Breakfast Regular Diet [DIET] Regular Diet [DIET] 03/11/17 09:16 Heat Therapy [OM.PC] PRN - Assessment Assessment:: PPD1. Doing well. - Plan Plan:: Term delivery. Continued diarrhea through the evening. Improved somewhat. Stool studies negative other than high WBC.
--- NOTE | 2017-03-11 05:11 | PCM.DCSUM1 ---
Discharge Summary - Discharge Data Discharge Date: 03/11/17 Discharge Disposition: Home, Self-Care 01 Condition: Good - Patient Summary/Data Hospital Course: Admitted in active labor. of viable male on 03-10-17. Significant very watery diarrhea prior to delivery and for the first 12 hours after. C diff negative. Denies any sick contacts, travel or other exposures. Resolved eventually with imodium. Expresses desire for discharge. - Patient Instructions Diet: Usual Diet as Tolerated Activity: No Strenuous Activities Activity, Other: pelvic rest Driving: May Drive Today Notify Provider of: Fever, Increased Pain, Swelling and Redness, Drainage, Nausea and/or Vomiting Other/Special Instructions: return to see pcp if diarrhea that severe returns. - Discharge Plan Home Medications: Home Meds Pnv No.122/Iron/Folic Acid [ Multi Tablet] 1 tab PO DAILY 09/11/15 [ History] Referrals: Solis Graham MD [Physician] - (6 weeks) - Discharge Summary/Plan Comment DC Time >30 min.: No - General Info Date of Service: 03/11/17 Functional Status: Reports: Pain Controlled - Review of Systems General: Reports: No Symptoms HEENT: Reports: No Symptoms Pulmonary: Reports: No Symptoms Cardiovascular: Reports: No Symptoms Gastrointestinal: Reports: Diarrhea (improved since 7 pm), Other (hemorroid pain continues but better now that no diarrhea) Genitourinary: Reports: No Symptoms Musculoskeletal: Reports: No Symptoms Skin: Reports: No Symptoms Neurological: Reports: No Symptoms Psychiatric: Reports: No Symptoms - Patient Data Vitals - Most Recent: Last Vital Signs Temp 37.0 C 03/10/17 20:17 Pulse 87 03/10/17 20:17 Resp 18 03/10/17 20:17 BP 107/67 03/10/17 20:17 Pulse Ox 98 03/10/17 20:17 Weight - Most Recent: 73.164 kg I&O - Last 24 hours: Intake & Output 03/10/17 03/10/17 03/11/17 14:59 22:59 06:59 Intake Total 2120 240 Balance 2120 240 Lab Results - Last 24 hrs: Laboratory Results - last 24 hr 03/10/17 03/10/17 Range/Units 00:15 15:45 Urine Opiates Screen Negative (NEGATIVE) Ur Buprenorphine Scrn Negative (NEGATIVE) Ur Oxycodone Screen Negative (NEGATIVE) Urine Methadone Screen Negative (NEGATIVE) Ur Propoxyphene Screen Negative (NEGATIVE) Ur Barbiturates Screen Negative (NEGATIVE) Ur Tricyclics Screen Negative (NEGATIVE) Ur Phencyclidine Scrn Negative (NEGATIVE) Ur Amphetamine Screen Negative (NEGATIVE) U Methamphetamines Scrn Negative (NEGATIVE) U Benzodiazepines Scrn Negative (NEGATIVE) U Cocaine Metab Screen Negative (NEGATIVE) U Marijuana (THC) Screen Negative (NEGATIVE) C.difficile [id number] Presumptive negative C. difficile Tox (PCR) Negative LEONELA Results - Last 24 hrs: Microbiology 03/10/17 15:45 Stool for WBCs - Final Stool / Feces Med Orders - Current: Current Medications Benzocaine/Menthol (Dermoplast Pain Relief [place]) 0 gm TOP ASDIRECTED PRN PRN Reason: Perineal Comfort Measure Last Admin: 03/10/17 12:08 Dose: 1 canister Docusate Sodium (Colace) 100 mg PO BID PRN PRN Reason: Constipation Emollient Ointment (Lansinoh Hpa) 0 gm TOP ASDIRECTED PRN PRN Reason: Sore Nipples Hydrocortisone (Hydrocortisone 1% Crm) 0 gm TOP ASDIRECTED PRN PRN Reason: Hemorrhoids Last Admin: 03/10/17 13:41 Dose: 1 tube Ibuprofen (Motrin) 600 mg PO Q6H PRN PRN Reason: Mild pain or fever Last Admin: 03/10/17 23:38 Dose: 600 mg Loperamide HCl (Imodium) 2 mg PO Q4H PRN PRN Reason: Diarrhea Last Admin: 03/10/17 17:46 Dose: 2 mg Oxycodone/Acetaminophen (Percocet 325-5 Mg) 2 tab PO Q6H PRN PRN Reason: Pain Last Admin: 03/11/17 02:17 Dose: 1 tab Witch Leah (Tucks) 1 pad TOP ASDIRECTED PRN PRN Reason: Hemorrhoid pain Last Admin: 03/10/17 12:08 Dose: 1 container Discontinued Medications Ephedrine Sulfate (Ephedrine Sulfate) 5 mg IVPUSH ASDIRECTED PRN PRN Reason: Hypotension Fentanyl (Sublimaze) 100 mcg EPIDUR Q3H PRN PRN Reason: Pain Last Admin: 03/10/17 03:45 Dose: 100 mcg Fentanyl/Bupivacaine HCl (Fentanyl/Bupivacaine/Ns 2 Mcg-0.125% 100 Ml) 100 ml EPIDUR ASDIRECTED [facility] Last Admin: 03/10/17 03:44 Dose: 100 ml Lactated Ringer's (Ringers, Lactated) 1,000 mls @ 100 mls/hr IV ASDIRECTED [facility] Last Admin: 03/10/17 03:45 Dose: 999 mls/hr Oxytocin/Lactated Ringer's (Pitocin In Lr 10 Units/1,000 Ml) 10 unit in 1,000 mls @ 500 mls/hr IV .CONTINUOUS REED Last Admin: 03/10/17 07:50 Dose: 500 mls/hr Loperamide HCl (Imodium) 2 mg PO Q4H PRN PRN Reason: Diarrhea Last Admin: 03/10/17 03:25 Dose: 2 mg Ondansetron HCl (Zofran Odt) 4 mg PO Q4H PRN PRN Reason: Nausea/Vomiting Last Admin: 03/10/17 00:30 Dose: 4 mg Ondansetron HCl (Zofran) 4 mg IVPUSH Q4H PRN PRN Reason: Nausea/Vomiting Ondansetron HCl (Zofran) 4 mg IVPUSH ONETIME PRN PRN Reason: Nausea/Vomiting Sodium Chloride (Saline Flush) 10 ml FLUSH ASDIRECTED PRN PRN Reason: Keep Vein Open - Exam General: Reports: Alert, Oriented HEENT: Reports: Pupils Equal, Pupils Reactive, EOMI, Mucous Membr. Moist/[place] Neck: Reports: Supple Lungs: Reports: Clear to Auscultation, Normal Respiratory Effort Cardiovascular: Reports: Regular Rate, Regular Rhythm GI/Abdominal Exam: Normal Bowel Sounds, Soft, Non-Tender, No Organomegaly, No Distention, No Abnormal Bruit, No Mass, Pelvis Stable Back Exam: Reports: Normal Inspection, Full Range of Motion Extremities: Normal Inspection, Normal Range of Motion, Non-Tender, No Pedal Edema, Normal Capillary Refill Skin: Reports: Warm, Dry, Intact Wound/Incisions: Reports: Healing Well Neurological: Reports: No New Focal Deficit Psy/Mental Status: Reports: Alert, Normal Affect, Normal Mood *Q Meaningful Use (DIS) - VTE *Q VTE Criteria *Q: - Stroke *Q Stroke Criteria *Q: - AMI *Q AMI Criteria *Q:
[2017-03-11] MEDS: Ibuprofen 600 MG Tab PO PRN (08:59)
[2017-03-11 15:18] VITALS: BP 102/67
== END 2017-03-11 11:35 | disposition home or self-care (01) | DRG 560 ==
LOC: JD.OBCHECK 23:10 → JD.OB 23:13 → JD.OBCHECK 03-10 01:31 → JD.OB 03-10 01:32 → OBSVTOIN 03-10 07:44
PROVIDERS: ADMIT Obstetrics & Gynecology; ATTEND Obstetrics & Gynecology
PROC: 10E0XZZ Delivery of Products of Conception, External Approach (ICD-10-PCS; principal; 2017-03-10)
PROC: 10907ZC Drainage of Amniotic Fluid, Therapeutic from Products of Conception, Via Natural or Artificial Opening (ICD-10-PCS; 2017-03-10)
PROC: 00HU33Z Insertion of Infusion Device into Spinal Canal, Percutaneous Approach (ICD-10-PCS; 2017-03-10)
PROC: 3E0R3CZ (ICD-10-PCS; 2017-03-10)
DX: O99.334 Smoking (tobacco) complicating childbirth (principal); O75.89 Other specified complications of labor and delivery; R19.7 Diarrhea, unspecified; Z3A.39 39 weeks gestation of pregnancy; Z37.0 Single live birth; Z88.8 Allergy status to other drugs, medicaments and biological substances; Z86.718 Personal history of other venous thrombosis and embolism
CPT/HCPCS: 36415; 80306; 81001; 85025; 86850; 86900; 86901; 87046; 87427; 87493; 89055; A9270-GY; J2590; J3010; J7120

== ENCOUNTER 2017-03-19 13:10 | Day surgery (SDC) | payer BC ==
[~2017-03-19 13:10] MED LIST: Lactated Ringers 1,000 ML IV SCH; Lidocaine 1%/Sod Bicarbonate in NS 8.4% 1 ML Syringe PRN; Sodium Chloride 0.9% 10 ML Syringe FLUSH PRN; cefOXitin 2 GM in Premix Bag 1 BAG IV ONE
--- NOTE | 2017-03-19 13:39 | PCM.PREANE ---
Preanesthetic Assessment - Anesthesia/Transfusion/Family Hx Anesthesia History: Prior Anesthesia Without Reaction Family History of Anesthesia Reaction: No Transfusion History: No Prior Transfusion(s) Intubation History: Unknown - Review of Systems General: No Symptoms, Fatigue (smokes 5-6 cigarettes times 9 years.) Pulmonary: No Symptoms Cardiovascular: No Symptoms Gastrointestinal: No Symptoms Neurological: No Symptoms Other: Reports: None, Anxiety - Physical Assessment NPO Status Date: 03/19/17 NPO Status Time: 06:00 Pulse: 78 O2 Sat by Pulse Oximetry: 96 Respiratory Rate: 16 Blood Pressure: 113/60 Temperature: 36.9 C Height: 1.63 m Weight: 63 kg ASA Class: 2 Mental Status: Alert & Oriented x3 Airway Class: Mallampati = 2 Dentition: Reports: Normal Dentition, Caries Thyro-Mental Finger Breadths: 3 Mouth Opening Finger Breadths: 3 ROM/Head Extension: Full Lungs: Clear to Auscultation, Normal Respiratory Effort Cardiovascular: Regular Rate, Regular Rhythm, No Murmurs - Allergies Allergies/Adverse Reactions: Allergies Allergy/AdvReac Type Severity Reaction Status Date / Time No Known Allergies Allergy Verified 03/16/17 12:14 - Anesthesia Plan Pre-Op Medication Ordered: None - Acknowledgements Anesthesia Type Planned: MAC Pt an Appropriate Candidate for the Planned Anesthesia: Yes Alternatives and Risks of Anesthesia Discussed w Pt/Guardian: Yes Pt/Guardian Understands and Agrees with Anesthesia Plan: Yes PreAnesthesia Questionnaire - Past Health History Medical/Surgical History: Denies Medical/Surgical History HEENT History: Reports: None, Other (See Below) Other HEENT History: blurred vision, wears glasses Cardiovascular History: Reports: Blood Clots/VTE/DVT Respiratory History: Reports: None Gastrointestinal History: Reports: Chronic Constipation, GERD, Hemorrhoids Other Gastrointestinal History: constipation Genitourinary History: Reports: Renal Disease, STD, Other (See Below) Other Genitourinary History: Pt reports "spongy kidney" [employer] History: Reports: Polycystic Ovaries, , Spontaneous , Therapeutic Other OB/BYN History: Musculoskeletal History: Reports: Back Pain, Chronic Other Musculoskeletal History: Desai cyst Neurological History: Reports: Migraines Other Neuro History: freq dizziness Psychiatric History: Reports: None, Anxiety, Other (See Below) Other Psychiatric History: fatigue Endocrine/Metabolic History: Reports: None Hematologic History: Reports: Anemia, Other (See Below) Immunologic History: Reports: None Oncologic (Cancer) History: Reports: Cervix Dermatologic History: Reports: Other (See Below) Other Dermatologic History: adult acne - Infectious Disease History Infectious Disease History: Reports: None - Past Surgical History Head Surgeries/Procedures: HEENT Surgical History: Reports: Oral Surgery, Tonsillectomy Other HEENT Surgeries/Procedures: Ernul teeth extraction Cardiovascular Surgical History: Reports: None Other Cardiovascular Surgeries/Procedures: Pt had blood clots in left leg in October 2015 Respiratory Surgical History: Reports: None GI Surgical History: Reports: EGD Female Surgical History: Reports: Cervical Conization, D&C, LEEP, Other (See Below) Other Female Surgeries/Procedures: Colposcopy during this Endocrine Surgical History: Reports: None Musculoskeletal Surgical History: Reports: ORIF Other Musculoskeletal Surgeries/Procedures:: Muscular Dystrophy, 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 Oncologic Surgical History: Reports: None - SUBSTANCE USE Smoking Status *Q: Current Every Day Smoker Tobacco Use Within Last Twelve Months: Cigarettes Second Hand Smoke Exposure: No Days Per Week of Alcohol Use: 0 Recreational Drug Use History: No - HOME MEDS Home Medications: Home Meds Clindamycin Phosphate [Clindagel] 1 applic TOP BID 03/16/17 [History] - CURRENT (IN HOUSE) MEDS Current Meds: Current Medications Lactated Ringer's (Ringers, Lactated) 1,000 mls @ 125 mls/hr IV ASDIRECTED [facility] Stop: 03/19/17 23:00 Lidocaine/Sodium Bicarbonate (Buffered Lidocaine 1% In Ns 8.4%) 0.25 ml .XX ONETIME PRN PRN Reason: Prior to IV Start Stop: 03/19/17 18:00 Sodium Chloride (Saline Flush) 10 ml FLUSH ASDIRECTED PRN PRN Reason: Keep Vein Open Stop: 03/19/17 18:00 Discontinued Medications Bupivacaine HCl/Epinephrine Bitart (Marcaine 0.5%/Epinephrine 1:200,000) Confirm Administered Dose 50 ml .ROUTE .STK-MED ONE Stop: 03/19/17 13:07 Dibucaine (Nupercainal 1% Oint) Confirm Administered Dose 28.35 gm .ROUTE .STK- MED ONE Stop: 03/19/17 13:07 Cefoxitin Sodium 2 gm/ Premix 50 mls @ 100 mls/hr IV ONETIME ONE Stop: 03/19/17 13:29 Lidocaine/Epinephrine (Xylocaine 1% With Epinephrine 1:100,000) Confirm Administered Dose 20 ml .ROUTE .[facility] ONE Stop: 03/19/17 13:07
[2017-03-19] MEDS ORDERED: Ondansetron 4 MG/2 ML SDV ONE (13:51)
[2017-03-19] MEDS ORDERED: Lidocaine 1% 4 ML ONE (13:51)
[2017-03-19] MEDS ORDERED: Propofol 200 MG/20 ML SDV ONE ×2 (13:52→13:54)
[2017-03-19] MEDS ORDERED: Midazolam 1 MG/ML 2 ML SDV ONE (13:52)
[2017-03-19] MEDS ORDERED: fentaNYL 250 MCG/5 ML SDV ONE (13:52)
[2017-03-19] MEDS ORDERED: Succinylcholine 200 MG/10 ML MDV ONE (13:57)
[2017-03-19] MEDS: Bupivacaine 0.5%/EPINEPHrine 1:200,000 50 ML MDV ONE ×2 (14:12→14:19)
[2017-03-19] MEDS: Lidocaine 1% with EPINEPHrine 1:100,000 20 ML MDV ONE ×2 (14:12→14:19)
[2017-03-19] MEDS ORDERED: Ondansetron 4 MG/2 ML SDV IVPUSH PRN (14:23)
--- NOTE | 2017-03-19 15:00 | PCM.OPNOTE ---
- General Post-Op/Procedure Note Date of Surgery/Procedure: 03/19/17 Operative Procedure(s): 1. Anoscopy. 2. PPH procedure (hemorrhoidal pexy) Findings: 1. Perianal skin tags 2. Small external hemorrhoidal thrombosis 3. 3 column prolapsed internal hemorrhoids Pre Op Diagnosis: Grade 2 hemorrhoids with anal tags and external hemorrhoidal thrombosis Post-Op Diagnosis: Same Anesthesia Technique: Local, MAC, Moderate Sedation Primary Surgeon: Guanakito Gaxiola Pathology: Rectal mucosal strip EBL in mLs: 0 Complications: None Condition: Good Free Text/Narrative:: After adequate IV sedation and analgesia with monitoring the patient was placed in the prone jackknife position with her buttocks taped. A perianal block was performed with local analgesia. Anoscopy revealed the anal tags external hemorrhoidal thrombosis and prolapsed 3 column internal hemorrhoids which were uncomplicated. A 2-0 Prolene pursestring suture was placed at about 4 cm above the dentate line. The PPH stapler was then fired producing a rectal mucosal strip which was sent to pathology. Checking the staple line revealed it to be hemostatic. Surgicel and Nupercainal ointment were placed in the anal canal. There were no complications.
[2017-03-19] MEDS ORDERED: fentaNYL 100 MCG/2 ML SDV ONE (15:05)
[2017-03-19] MEDS: fentaNYL 100 MCG/2 ML SDV IVPUSH PRN ×2 (15:15→15:30)
[2017-03-19] MEDS ORDERED: Acetaminophen/oxyCODONE 325-5 MG Tab PO ONE (15:26)
[2017-03-19 16:43] VITALS: BP 97/68
== END 2017-03-19 16:15 | disposition home or self-care (01) ==
LOC: JD.SDS 13:10
PROVIDERS: ATTEND Surgery
DX: K64.8 Other hemorrhoids (principal); K64.4 Residual hemorrhoidal skin tags; F41.9 Anxiety disorder, unspecified; K21.9 Gastro-esophageal reflux disease without esophagitis; Z86.718 Personal history of other venous thrombosis and embolism; Z79.899 Other long term (current) drug therapy; Z79.01 Long term (current) use of anticoagulants; Z98.890 Other specified postprocedural states; F17.210 Nicotine dependence, cigarettes, uncomplicated
CPT/HCPCS: 46947; A9270; J0694; J2250; J2405; J3010; J7120; 00902; J0330; J2704

== ENCOUNTER 2017-04-27 09:02 | Day surgery (SDC) | payer BC ==
[~2017-04-27 09:02] MED LIST changes: -cefOXitin 2 GM in Premix Bag 1 BAG IV ONE
[2017-04-27] MEDS ORDERED: Sodium Chloride 0.9% 50 ML SDV ONE (09:28)
[2017-04-27] MEDS ORDERED: Lidocaine 1% with EPINEPHrine 1:100,000 20 ML MDV ONE (09:28)
--- NOTE | 2017-04-27 09:29 | PCM.PREANE ---
Preanesthetic Assessment - Anesthesia/Transfusion/Family Hx Anesthesia History: Prior Anesthesia Without Reaction Family History of Anesthesia Reaction: Yes (Dad nausea) Transfusion History: No Prior Transfusion(s) Intubation History: Unknown - Review of Systems General: No Symptoms Pulmonary: No Symptoms Cardiovascular: No Symptoms Gastrointestinal: No Symptoms Neurological: No Symptoms Other: Reports: None - Physical Assessment NPO Status Date: 04/26/17 NPO Status Time: 00:00 Pulse: 78 O2 Sat by Pulse Oximetry: 98 Respiratory Rate: 16 Blood Pressure: 101/71 Temperature: 36.5 C Height: 1.63 m Weight: 61.7 kg ASA Class: 2 Mental Status: Alert & Oriented x3 Airway Class: Mallampati = 1 Dentition: Reports: Normal Dentition Thyro-Mental Finger Breadths: 3 Mouth Opening Finger Breadths: 3 ROM/Head Extension: Full Lungs: Clear to Auscultation, Normal Respiratory Effort Cardiovascular: Regular Rate, Regular Rhythm, No Murmurs - Lab Values: Laboratory Last Values WBC 9.50 K/mm3 (3.98-10.04) 04/25/17 11:59 RBC 4.43 M/mm3 (3.98-5.22) 04/25/17 11:59 Hgb 13.2 gm/L (11.2-15.7) 04/25/17 11:59 Hct 39.4 % (34.1-44.9) 04/25/17 11:59 MCV 88.9 fl (79.4-94.8) 04/25/17 11:59 MCH 29.8 pg (25.6-32.2) 04/25/17 11:59 MCHC 33.5 g/dl (32.2-35.5) 04/25/17 11:59 RDW Std Deviation 41.3 fL (36.4-46.3) 04/25/17 11:59 Plt Count 372 K/mm3 (182-369) H 04/25/17 11:59 MPV 8.7 fl (9.4-12.3) L 04/25/17 11:59 Neut % (Auto) 57.2 % (34.0-71.1) 04/25/17 11:59 Lymph % (Auto) 33.4 % (19.3-51.7) 04/25/17 11:59 [place] % (Auto) 6.9 % (4.7-12.5) 04/25/17 11:59 Eos % (Auto) 2.1 (0.7-5.8) 04/25/17 11:59 Baso % (Auto) 0.3 % (0.1-1.2) 04/25/17 11:59 Neut # (Auto) 5.43 K/mm3 (1.56-6.13) 04/25/17 11:59 Lymph # (Auto) 3.17 K/mm3 (1.18-3.74) 04/25/17 11:59 [place] # (Auto) 0.66 K/mm3 (0.24-0.36) H 04/25/17 11:59 Eos # (Auto) 0.20 K/mm3 (0.04-0.36) 04/25/17 11:59 Baso # (Auto) 0.03 K/mm3 (0.01-0.08) 04/25/17 11:59 Urine Color Yellow (Yellow) 04/25/17 11:59 Urine Appearance Clear (Clear) 04/25/17 11:59 Urine pH 6.0 (5.0-8.0) 04/25/17 11:59 Ur Specific [place] 1.025 (1.005-1.030) 04/25/17 11:59 Urine Protein Negative (Negative) 04/25/17 11:59 Urine Glucose (UA) Negative (Negative) 04/25/17 11:59 Urine Ketones Negative (Negative) 04/25/17 11:59 Urine Occult Blood Negative (Negative) 04/25/17 11:59 Urine Nitrite Negative (Negative) 04/25/17 11:59 Urine Bilirubin Negative (Negative) 04/25/17 11:59 Urine Urobilinogen 0.2 (0.2-1.0) 04/25/17 11:59 Ur Leukocyte Esterase Negative (Negative) 04/25/17 11:59 Urine HCG, Qual Negative (NEGATIVE) 04/25/17 11:59 - Allergies Allergies/Adverse Reactions: Allergies Allergy/AdvReac Type Severity Reaction Status Date / Time No Known Allergies Allergy Verified 04/26/17 14:05 - Anesthesia Plan Pre-Op Medication Ordered: None - Acknowledgements Anesthesia Type Planned: MAC Pt an Appropriate Candidate for the Planned Anesthesia: Yes Alternatives and Risks of Anesthesia Discussed w Pt/Guardian: Yes Pt/Guardian Understands and Agrees with Anesthesia Plan: Yes PreAnesthesia Questionnaire - Past Health History Medical/Surgical History: Denies Medical/Surgical History HEENT History: Reports: Other (See Below) Other HEENT History: blurred vision, wears glasses Cardiovascular History: Reports: Blood Clots/VTE/DVT Respiratory History: Reports: None Gastrointestinal History: Reports: Chronic Constipation, GERD, Hemorrhoids Other Gastrointestinal History: constipation Genitourinary History: Reports: Renal Disease, STD, Other (See Below) Other Genitourinary History: Pt reports "spongy kidney" 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: Reports: Polycystic Ovaries, , Spontaneous , Therapeutic Other OB/BYN History: CINIII Musculoskeletal History: Reports: Back Pain, Chronic Other Musculoskeletal History: Desai cyst Neurological History: Reports: Migraines Other Neuro History: freq dizziness Psychiatric History: Reports: Anxiety, Other (See Below) Other Psychiatric History: fatigue Endocrine/Metabolic History: Reports: None Hematologic History: Reports: Anemia, Other (See Below) Immunologic History: Reports: None Oncologic (Cancer) History: Reports: Cervix Dermatologic History: Reports: Other (See Below) Other Dermatologic History: adult acne - Infectious Disease History Infectious Disease History: Reports: None - Past Surgical History HEENT Surgical History: Reports: Oral Surgery, Tonsillectomy Other HEENT Surgeries/Procedures: Martin teeth extraction Cardiovascular Surgical History: Reports: None Other Cardiovascular Surgeries/Procedures: Pt had blood clots in left leg in October 2015 Respiratory Surgical History: Reports: None GI Surgical History: Reports: EGD Female Surgical History: Reports: Cervical Conization, D&C, LEEP, Other (See Below) Other Female Surgeries/Procedures: Colposcopy during this Endocrine Surgical History: Reports: None Musculoskeletal Surgical History: Reports: ORIF Other Musculoskeletal Surgeries/Procedures:: Muscular Dystrophy, 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 Oncologic Surgical History: Reports: None - SUBSTANCE USE Smoking Status *Q: Current Every Day Smoker Tobacco Use Within Last Twelve Months: Cigarettes Second Hand Smoke Exposure: No Days Per Week of Alcohol Use: 0 Number of Drinks Per Day: 0 Total Drinks Per Week: 0 Recreational Drug Use History: No - HOME MEDS Home Medications: Home Meds Clindamycin Phosphate [Clindagel] 1 applic TOP BID 03/16/17 [History] Fenugreek Seed Extract [Fenugreek] 500 mg PO DAILY 04/26/17 [History] Vits #93/Iron Fum/FA [ Formula Tablet] 1 tab PO DAILY 04/26/17 [History] - CURRENT (IN HOUSE) MEDS Current Meds: Current Medications Lactated Ringer's (Ringers, Lactated) 1,000 mls @ 125 mls/hr IV ASDIRECTED REED Stop: 04/27/17 23:00 Lidocaine/Sodium Bicarbonate (Buffered Lidocaine 1% In Ns 8.4%) 0.25 ml .XX ONETIME PRN PRN Reason: Prior to IV Start Stop: 04/27/17 18:00 Sodium Chloride (Saline Flush) 10 ml FLUSH ASDIRECTED PRN PRN Reason: Keep Vein Open Stop: 04/27/17 18:00 Discontinued Medications Lactated Ringer's (Ringers, Lactated) 1,000 mls @ 125 mls/hr IV ASDIRECTED REED Stop: 04/24/17 23:00 Lidocaine/Sodium Bicarbonate (Buffered Lidocaine 1% In Ns 8.4%) 0.25 ml .XX ONETIME PRN PRN Reason: Prior to IV Start Stop: 04/24/17 18:00 Sodium Chloride (Saline Flush) 10 ml FLUSH ASDIRECTED PRN PRN Reason: Keep Vein Open Stop: 04/24/17 18:00
[2017-04-27] MEDS ORDERED: Propofol 200 MG/20 ML SDV ONE ×2 (09:55→10:53)
[2017-04-27] MEDS ORDERED: fentaNYL 100 MCG/2 ML SDV ONE (09:55)
[2017-04-27] MEDS ORDERED: Midazolam 1 MG/ML 2 ML SDV ONE (09:55)
[2017-04-27] MEDS ORDERED: ceFAZolin 1 GM Vial ONE (10:28)
[2017-04-27] MEDS ORDERED: Ondansetron 4 MG/2 ML SDV IVPUSH PRN (11:15)
[2017-04-27] MEDS ORDERED: Acetaminophen/oxyCODONE 325-5 MG Tab PO PRN (11:15)
--- NOTE | 2017-04-27 11:20 | PCM.OPNOTE ---
- General Post-Op/Procedure Note Date of Surgery/Procedure: 04/27/17 Operative Procedure(s): Cervical cold knife cone biopsy Findings: Patient white epithelium especially in the posterior aspect of the cervical os. Unchanged from preoperative evaluation. Pre Op Diagnosis: Cervical intraepithelial neoplasia 3 Post-Op Diagnosis: Same Anesthesia Technique: Moderate Sedation Other Anesthesia Type: Paracervical block with lidocaine quarter percent with [id number] mL to Primary Surgeon: Solis Graham Anesthesia Provider: Bakari Pugh Fluid Replacement, Intraop: 900 EBL in mLs: 5 Complications: None Condition: Good Free Text/Narrative:: Surgery duration 20 minute minutes: Procedure: The patient is taken to the operating room and placed in supine position on the operating table. She was administered Ancef 2 g IV preop for infection prophylaxis and had sequential compression stockings in place for DVT prophylaxis. General anesthesia was administered. After anesthesia patient was placed in a dorsal lithotomy position and prepped externally for this procedure. Internal prep was done with Lugol solution. A weighted speculum was placed in the vagina. The cervix was visualized and a stay suture was placed at the 3:00 and 9 o'clock position using #1 Vicryl suture. The Lugol solution was applied and the ectocervix showed white epithelium especially in the posterior aspect.. The cervix was infiltrated with lidocaine quarter percent with epinephrine-15 mL total. Cold knife cone biopsy was then performed. The specimen was tagged at 12 o'clock position with a piece of suture. Endocervical curettage was done above the cone site and sent as specimen #2. The base the cone was then sutured with a running lock suture and. Conference.. Hemostasis was confirmed at the end of procedure. The stay suture tails were cut and the speculum was removed. Sponge instrument needle counts are correct at the end of the procedure. She was returned to supine position and awakened from general anesthesia. She tolerated the procedure well left the operating room in good condition.
[2017-04-27] MEDS ORDERED: Ketorolac 30 MG/ML SDV IVPUSH SCH (11:35)
[2017-04-27 12:02] VITALS: BP 107/69
== END 2017-04-27 12:05 | disposition home or self-care (01) ==
LOC: JD.SDS 09:02
PROVIDERS: ATTEND Obstetrics & Gynecology
DX: D06.9 Carcinoma in situ of cervix, unspecified (principal); F41.9 Anxiety disorder, unspecified; K21.9 Gastro-esophageal reflux disease without esophagitis; I82.409 Acute embolism and thrombosis of unspecified deep veins of unspecified lower extremity; F17.210 Nicotine dependence, cigarettes, uncomplicated; Z79.899 Other long term (current) drug therapy; Z96.7 Presence of other bone and tendon implants; Z87.81 Personal history of (healed) traumatic fracture; Z79.01 Long term (current) use of anticoagulants; Z98.890 Other specified postprocedural states
CPT/HCPCS: 36415; 57520; 81003; 81025; 85025; A9270; J0690; J1885; J2250; J3010; J7120; 00940; J2704

== ENCOUNTER 2017-10-11 08:36 | Emergency (ER) | payer BC ==
[2017-10-11 08:45] VITALS: BP 102/73
[2017-10-11] MEDS ORDERED: Ondansetron 4 MG Tab.DIS PO ONE (09:17)
--- NOTE | 2017-10-11 09:20 | EDM.PDOC ---
ED HPI GENERAL MEDICAL PROBLEM - General Chief Complaint: Gastrointestinal Problem Stated Complaint: VOMITING/POSS. REACTION TO MEDS Time Seen by Provider: 10/11/17 09:01 Source of Information: Reports: Patient History Limitations: Reports: No Limitations - History of Present Illness INITIAL COMMENTS - FREE TEXT/NARRATIVE: The patient states that she has a history of anxiety, previously treated with BuSpar, however, she states that she stopped taking it about one year ago, after she got . She states that she has had increased stress at work and decreased ability to sleep, therefore she took a single dose of it yesterday. She now presents with symptoms of feeling shaky, sweaty, nauseated, groggy, and sleepy. The patient states that in addition to BuSpar, she has also been previously treated with benzodiazepines, however, she has never been on a SSRI. She states that she does not like the effects of benzodiazepines. No recent illnesses. The patient's PCP is Fany Nolen. Abdominal Pain Score (Numeric/FACES): 4 - Related Data Allergies Allergy/AdvReac Type Severity Reaction Status Date / Time No Known Allergies Allergy Verified 10/11/17 08:46 Home Meds: Home Meds Ondansetron [Zofran ODT] 1 tab PO Q8H PRN #10 tab.dis 10/11/17 [Rx] busPIRone [Buspar] 1 mg PO DAILY 10/11/17 [History] Past Medical History HEENT History: Reports: Other (See Below) Other HEENT History: blurred vision, wears glasses Cardiovascular History: Reports: Blood Clots/VTE/DVT Gastrointestinal History: Reports: GERD, Hemorrhoids Genitourinary History: Reports: Other (See Below) Other Genitourinary History: Pt reports "spongy kidney" 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: Polycystic Ovaries, , Spontaneous , Therapeutic Musculoskeletal History: Reports: Other (See Below) (Desai cyst) Psychiatric History: Reports: Anxiety Hematologic History: Reports: Anemia 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) - Past Surgical History HEENT Surgical History: Reports: Oral Surgery (Cash teeth extraction), Tonsillectomy Other Cardiovascular Surgeries/Procedures: Pt had blood clots in left leg in October 2015 GI Surgical History: Reports: EGD Female Surgical History: Reports: Cervical Conization, D&C, LEEP, Other (See Below) (Colposcopy) Musculoskeletal Surgical History: Reports: ORIF (left ankle) Social & Family History - Family History Family Medical History: Noncontributory Cardiac: Reports: Blood Clots/VTE/DVT - Tobacco Use Smoking Status *Q: Current Every Day Smoker Years of Tobacco use: 10 Packs/Tins Daily: 1 Used Tobacco, but Quit: No Month/Year Tobacco Last Used: 2 Second Hand Smoke Exposure: No - Caffeine Use Caffeine Use: Reports: None Other Caffeine Use: 2-3 per day - Alcohol Use Days Per Week of Alcohol Use: 0 Number of Drinks Per Day: 0 Total Drinks Per Week: 0 - Recreational Drug Use Recreational Drug Use: No - Living Situation & Occupation Living situation: Reports: , with Family 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 ED EXAM, GENERAL - Physical Exam Exam: See Below Exam Limited By: No Limitations General Appearance: Alert, WD/WN, No Apparent Distress Eye Exam: Bilateral Eye: Normal Inspection Ears: Normal External Exam, Hearing Grossly Normal Nose: Normal Inspection, No Blood Throat/Mouth: Normal Inspection, Normal Lips, Normal Voice, No Airway Compromise Head: Atraumatic, Normocephalic Neck: Normal Inspection, Full Range of Motion Respiratory/Chest: No Respiratory Distress, Lungs Clear, Normal Breath Sounds, No Accessory Muscle Use Cardiovascular: Normal Peripheral Pulses, Regular Rate, Rhythm, No Gallop, No JVD, No Murmur, No Rub Peripheral Pulses: 4+: Radial (L), Radial (R) GI/Abdominal: Normal Bowel Sounds, Soft, Non-Tender, No Organomegaly, No Distention, No Abnormal Bruit, No Mass (Female) Exam: Deferred Rectal (Female) Exam: Deferred Back Exam: Normal Inspection, Full Range of Motion, NT Extremities: Normal Inspection, Normal Range of Motion, No Pedal Edema, Normal Capillary Refill Neurological: Alert, Oriented, Normal Cognition, No Motor/Sensory Deficits Psychiatric: Normal Affect, Anxious Skin Exam: Warm, Dry, Intact, Normal Color, No Rash Course - Vital Signs Last Recorded V/S: Last Vital Signs Temp 36.4 C 10/11/17 08:43 Pulse 83 10/11/17 08:43 Resp 16 04/12/18 08:43 BP 102/73 04/12/18 08:43 Pulse Ox 98 10/11/17 08:43 - Orders/Labs/Meds Meds: Medications Discontinued Medications Generic Name Dose Route Start Last Admin Trade Name Jacky PRN Reason Stop Dose Admin Ondansetron HCl 4 mg 10/11/17 09:17 10/11/17 09:22 Zofran Odt PO 10/11/17 09:18 4 mg ONETIME ONE Administration - Re-Assessments/Exams Free Text/Narrative Re-Assessment/Exam: 10/11/17 09:14 The patient appears to be suffering from anxiety (nausea, shaky, sweaty), and fatigue (groggy, sleepy), likely brought on from insomnia, also related to anxiety. I do not believe that these symptoms are related to the single dose of BuSpar that she took yesterday, as this medicine often takes up to 3 months to become effective, and the side effects that she is describing are not side effects commonly associated with BuSpar. The patient acknowledges that she has a long-standing history of anxiety, only previously treated with BuSpar, that she quit one year ago, and benzodiazepines , that she does not like. She states that she has never been on an SSRI. Since we do not prescribe SSRIs from the ED, I am recommending that she follow-up with her PCP, Fany Nolen, as early as tomorrow to discuss treatment options. The patient is agreeable. In the meantime, the patient will receive a single dose of Zofran prior to discharge from the ED, and I will e-prescribe additional. Blood work, to check that the patient is otherwise well, was offered, but declined. Departure - Departure Time of Disposition: 09:16 Disposition: Home, Self-Care 01 Condition: Good Clinical Impression: Anxiety, Fatigue - Discharge Information Prescriptions: Ondansetron [Zofran ODT] 1 tab PO Q8H PRN #10 tab.dis PRN Reason: Nausea/Vomiting Instructions: Generalized Anxiety Disorder, Adult, Fatigue Referrals: Fany Nolen PA [Primary Care Provider] - Forms: ED Department Discharge Additional Instructions: You were seen in the emergency room for symptoms of grogginess, sleepiness, nausea, shakiness, and sweatiness. Based on your history and physical examination, your symptoms are MOST LIKELY due to untreated anxiety, and fatigue from not sleeping well. You have been started on the anti-nausea medicine Zofran. A prescription for this has been sent to [facility] located in the [employer] [facility] store. Dissolve 1 tablet on your tongue up to every 8 hours, as needed for nausea/ vomiting. Follow-up with your PCP, Fany Nolen, at the next available appointment, to discuss treatment options for anxiety. Until you see her, we recommend that you not take any more BuSpar. If any other problems, please do not hesitate to return to the ER.
== END 2017-10-11 09:29 | disposition home or self-care (01) ==
LOC: JD.ED 08:36
DX: F41.9 Anxiety disorder, unspecified (principal); R53.83 Other fatigue; F17.210 Nicotine dependence, cigarettes, uncomplicated
CPT/HCPCS: 99283; A9270

== ENCOUNTER 2018-02-21 18:39 | Emergency (ER) | payer BC, OTHER ==
[2018-02-21 18:54] VITALS: BP 108/82
--- NOTE | 2018-02-21 19:28 | EDM.PDOC ---
ED HPI GENERAL MEDICAL PROBLEM - General Chief Complaint: Neurological Problem Stated Complaint: LEFT SIDE NUMBNESS Time Seen by Provider: 02/21/18 19:08 Source of Information: Reports: Patient History Limitations: Reports: No Limitations - History of Present Illness INITIAL COMMENTS - FREE TEXT/NARRATIVE: 32-year-old female presents for evaluation and treatment of right sided numbness and tingling. Patient states she had a laparoscopic cholecystectomy with Dr. Ronquillo in [place] on Sunday. Reports on Sunday when she got up she appreciated numbness and tingling to the right jaw, right side of her neck, right shoulder right arm, right buttocks, right flank and right leg. She states her right foot is "completely ." She has a history of migraines but does not presently have any headache. No weakness, nausea, vomiting or any vision changes. Reports she's had a good appetite. Patient currently resides in [place] is here because they're selling their home and her still works in [employer]. Reports a history of DVT blood clots found during . She is currently not on any anticoagulation. DVT was about 2 years ago. Reports coag disorder work up which was negative. Denies any current chest pain but reports shortness of breath. Reports a history of low potassium, magnesium and other electrolyte abnormalities. She is not currently on any medications other than she was prescribed Percocet for her gallbladder removal. Patient reports her states that she was sounding "drunk" after her gallbladder surgery; at that time she was taking her Percocet as needed for pain. Right Generalized Pain Score (Numeric/FACES): 7 - Related Data Allergies Allergy/AdvReac Type Severity Reaction Status Date / Time No Known Allergies Allergy Verified 02/21/18 18:49 Home Meds: Home Meds Ondansetron [Zofran ODT] 1 tab PO Q8H PRN #10 tab.dis 10/11/17 [Rx] busPIRone [Buspar] 1 mg PO DAILY 10/11/17 [History] Past Medical History - Past Health History Medical/Surgical History: Denies Medical/Surgical History HEENT History: Reports: Other (See Below) Other HEENT History: blurred vision, wears glasses Cardiovascular History: Reports: Blood Clots/VTE/DVT Respiratory History: Reports: None Gastrointestinal History: Reports: GERD, Hemorrhoids Other Gastrointestinal History: constipation Genitourinary History: Reports: Other (See Below) Other Genitourinary History: Pt reports "spongy kidney" HOT MIX OPERATOR History: Reports: Polycystic Ovaries, , Spontaneous , Therapeutic Other HOT MIX OPERATOR History: CINIII Musculoskeletal History: Reports: Other (See Below) (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 Neurological History: Reports: Migraines Other Neuro History: freq dizziness Psychiatric History: Reports: Anxiety Other Psychiatric History: fatigue Endocrine/Metabolic History: Reports: None Hematologic History: Reports: Anemia Immunologic History: Reports: None 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) Dermatologic History: Reports: Other (See Below) Other Dermatologic History: adult acne - Infectious Disease History Infectious Disease History: Reports: None - Past Surgical History HEENT Surgical History: Reports: Oral Surgery ([place] teeth extraction), Tonsillectomy Other Cardiovascular Surgeries/Procedures: Pt had blood clots in left leg in October 2015 GI Surgical History: Reports: EGD Female Surgical History: Reports: Cervical Conization, D&C, LEEP, Other (See Below) (Colposcopy) Musculoskeletal Surgical History: Reports: ORIF (left ankle) Social & Family History - Family History Family Medical History: Noncontributory Cardiac: Reports: Blood Clots/VTE/DVT - Caffeine Use Caffeine Use: Reports: None Other Caffeine Use: 2-3 per day - Living Situation & Occupation Living situation: Reports: , with Family 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 Denies: Headache ED EXAM, NEURO - Physical Exam Exam: See Below Exam Limited By: No Limitations General Appearance: Alert, WD/WN, No Apparent Distress Eye Exam: Bilateral Eye: EOMI, Normal Inspection Ears: Normal External Exam Nose: Normal Inspection Throat/Mouth: Normal Inspection, Normal Lips, Normal Oropharynx, Normal Voice, No Airway Compromise Neck: Normal Inspection Respiratory/Chest: No Respiratory Distress, Lungs Clear, Normal Breath Sounds Cardiovascular: Normal Peripheral Pulses, Regular Rate, Rhythm, No Murmur Neurological: Alert, Normal Mood/Affect, Normal Dorsiflexion, CN II-XII Intact, Normal Plantar Flexion, Normal Gait, Other (Photocopying Equipment Repairer strength 5 out of 5 bilaterally , dorsiflexion and plantar flexion 5 out of 5 bilaterally, normal heel to cohen testing. Normal xfvsas-[id number] testing. No pronator drift. Smile symmetric. No slurred speech. NIHSS is 1 for decreased sensation to the right leg; reports decreased sensation to the right side to her jaw, arm and leg.) Psychiatric: Normal Affect, Normal Mood Skin Exam: Warm, Dry, Normal Color EKG INTERPRETATION EKG Date: 02/21/18 Time: 22:25 Rhythm: NSR Rate (Beats/Min): 73 [place]: Normal P-Wave: Present QRS: Normal ST-T: Normal QT: Normal EKG Interpretation Comments: NSR at 73 bpm. No ischemic changes. Borderline RAD. No LVH. No IVCD. QTc WNL. Reviewed by myself and Dr. Yeh. Course - Vital Signs Last Recorded V/S: Last Vital Signs Temp 98.1 F 02/21/18 18:49 Pulse 97 02/21/18 18:49 Resp 16 02/21/18 18:49 BP 108/82 02/21/18 18:49 Pulse Ox 99 02/21/18 18:49 - Orders/Labs/Meds Orders: Active Orders 24 hr Category Date Time Status Cardiac Monitoring [RC] . DIRECTED Care 02/21/18 22:45 Ordered EKG 12 Lead [EKG Documentation Completion] [RC] STAT Care 02/21/18 22:18 Active NIH Stroke Scale [RC] ASDIRECTED Care 02/21/18 20:36 Active Peripheral IV Care [RC] . DIRECTED Care 02/21/18 21:21 Active Chest PE [Ang Chest] [CT] Stat Exams 02/21/18 21:21 Ordered Head wo Cont [CT] Stat Exams 02/21/18 19:27 Taken UA W/MICROSCOPIC [URIN] Stat Lab 02/21/18 19:42 Ordered Sodium Chloride 0.9% [Normal Saline] 1,000 ml Med 02/21/18 21:30 Active IV ASDIRECTED Sodium Chloride 0.9% [Saline Flush] Med 02/21/18 21:21 Active 10 ml FLUSH ASDIRECTED PRN Peripheral IV Insertion Adult [OM.PC] Routine Oth 02/21/18 21:21 Ordered Medication Orders Sodium Chloride (Normal Saline) 1,000 mls @ 150 mls/hr IV ASDIRECTED REED Last Admin: 02/21/18 21:44 Dose: 150 mls/hr Sodium Chloride (Saline Flush) 10 ml FLUSH ASDIRECTED PRN PRN Reason: Keep Vein Open Last Admin: 02/21/18 22:40 Dose: 10 ml Labs: Laboratory Tests 02/21/18 02/21/18 02/21/18 Range/Units 19:42 19:50 19:50 WBC 11.48 H (3.98-10.04) K/mm3 RBC 4.67 (3.98-5.22) M/mm3 Hgb 13.8 (11.2-15.7) gm/L Hct 40.5 (34.1-44.9) % MCV 86.7 (79.4-94.8) fl MCH 29.6 (25.6-32.2) pg MCHC 34.1 (32.2-35.5) g/dl RDW Std Deviation 39.9 (36.4-46.3) fL Plt Count 341 (182-369) K/mm3 MPV 9.5 (9.4-12.3) fl Neut % (Auto) 50.6 (34.0-71.1) % Lymph % (Auto) 37.3 (19.3-51.7) % [place] % (Auto) 8.3 (4.7-12.5) % Eos % (Auto) 3.0 (0.7-5.8) Baso % (Auto) 0.5 (0.1-1.2) % Neut # (Auto) 5.82 (1.56-6.13) K/mm3 Lymph # (Auto) 4.28 H (1.18-3.74) K/mm3 [place] # (Auto) 0.95 H (0.24-0.36) K/mm3 Eos # (Auto) 0.34 (0.04-0.36) K/mm3 Baso # (Auto) 0.06 (0.01-0.08) K/mm3 PT (9.5-12.1) SECONDS INR APTT (24-31) SECONDS D-Dimer, Quantitative 0.93 H (0.19-0.50) mg/L Sodium (136-145) mEq/L Potassium (3.5-5.1) mEq/L Chloride (98-107) mEq/L Carbon Dioxide (21-32) mEq/L Anion Gap (5-15) BUN (7-18) mg/dL Creatinine (0.55-1.02) mg/dL Est Cr Clr Drug Dosing mL/min Estimated GFR (MDRD) (>60) mL/min BUN/Creatinine Ratio (14-18) Glucose (74-106) mg/dL Calcium (8.5-10.1) mg/dL Magnesium (1.8-2.4) mg/dl Total Bilirubin (0.2-1.0) mg/dL AST (15-37) U/L ALT (14-59) U/L Alkaline Phosphatase (46-116) U/L Total Protein (6.4-8.2) g/dl Albumin (3.4-5.0) g/dl Globulin gm/dL Albumin/Globulin Ratio (1-2) Urine Color Yellow (Yellow) Urine Appearance Clear (Clear) Urine pH 6.0 (5.0-8.0) Ur Specific Gaffney > or = 1.030 (1.005-1.030) Urine Protein Negative (Negative) Urine Glucose (UA) Negative (Negative) Urine Ketones Negative (Negative) Urine Occult Blood Negative (Negative) Urine Nitrite Negative (Negative) Urine Bilirubin Negative (Negative) Urine Urobilinogen 0.2 (0.2-1.0) Ur Leukocyte Esterase Negative (Negative) Urine RBC 0-5 (0-5) /hpf Urine WBC Not seen (0-5) /hpf Ur Epithelial Cells 10-20 H (0-5) /hpf Urine Bacteria Not seen (FEW) /hpf Urine Mucus Not seen (FEW) /hpf 02/21/18 02/21/18 Range/Units 19:50 19:50 WBC (3.98-10.04) K/mm3 RBC (3.98-5.22) M/mm3 Hgb (11.2-15.7) gm/L Hct (34.1-44.9) % MCV (79.4-94.8) fl MCH (25.6-32.2) pg MCHC (32.2-35.5) g/dl RDW Std Deviation (36.4-46.3) fL Plt Count (182-369) K/mm3 MPV (9.4-12.3) fl Neut % (Auto) (34.0-71.1) % Lymph % (Auto) (19.3-51.7) % [place] % (Auto) (4.7-12.5) % Eos % (Auto) (0.7-5.8) Baso % (Auto) (0.1-1.2) % Neut # (Auto) (1.56-6.13) K/mm3 Lymph # (Auto) (1.18-3.74) K/mm3 [place] # (Auto) (0.24-0.36) K/mm3 Eos # (Auto) (0.04-0.36) K/mm3 Baso # (Auto) (0.01-0.08) K/mm3 PT 10.8 (9.5-12.1) SECONDS INR 0.99 APTT 31 (24-31) SECONDS D-Dimer, Quantitative (0.19-0.50) mg/L Sodium 138 (136-145) mEq/L Potassium 3.6 (3.5-5.1) mEq/L Chloride 103 (98-107) mEq/L Carbon Dioxide 24 (21-32) mEq/L Anion Gap 14.6 (5-15) BUN 12 (7-18) mg/dL Creatinine 0.8 (0.55-1.02) mg/dL Est Cr Clr Drug Dosing 88.79 mL/min Estimated GFR (MDRD) > 60 (>60) mL/min BUN/Creatinine Ratio 15.0 (14-18) Glucose 89 (74-106) mg/dL Calcium 9.1 (8.5-10.1) mg/dL Magnesium 1.9 (1.8-2.4) mg/dl Total Bilirubin 0.3 (0.2-1.0) mg/dL AST 10 L (15-37) U/L ALT 25 (14-59) U/L Alkaline Phosphatase 62 (46-116) U/L Total Protein 7.3 (6.4-8.2) g/dl Albumin 3.9 (3.4-5.0) g/dl Globulin 3.4 gm/dL Albumin/Globulin Ratio 1.2 (1-2) Urine Color (Yellow) Urine Appearance (Clear) Urine pH (5.0-8.0) Ur Specific G[place]ney (1.005-1.030) Urine Protein (Negative) Urine Glucose (UA) (Negative) Urine Ketones (Negative) Urine Occult Blood (Negative) Urine Nitrite (Negative) Urine Bilirubin (Negative) Urine Urobilinogen (0.2-1.0) Ur Leukocyte Esterase (Negative) Urine RBC (0-5) /hpf Urine WBC (0-5) /hpf Ur Epithelial Cells (0-5) /hpf Urine Bacteria (FEW) /hpf Urine Mucus (FEW) /hpf Meds: Medications Generic Name Dose Route Start Last Admin Trade Name Freq PRN Reason Stop Dose Admin Sodium Chloride 1,000 mls @ 150 mls/hr 02/21/18 21:30 02/21/18 21:44 Normal Saline IV 150 mls/hr ASDIRECTED REED Administration Sodium Chloride 10 ml 02/21/18 21:21 02/21/18 22:40 Saline Flush FLUSH 10 ml ASDIRECTED PRN Administration Keep Vein Open Discontinued Medications Generic Name Dose Route Start Last Admin Trade Name Freq PRN Reason Stop Dose Admin Aspirin 81 mg 02/21/18 22:26 02/21/18 22:38 Aspirin PO 02/21/18 22:27 81 mg ONETIME ONE Administration Heparin Sodium (Porcine) 4,880 units 02/21/18 21:26 02/21/18 21:44 Heparin Sodium IVPUSH 02/21/18 21:27 4,880 units .BOLUS ONE Administration Heparin Sodium/Dextrose 25,000 units in 500 mls @ 22.045 mls/hr 02/21/18 21: 30 02/21/18 22:15 Heparin 25,000 Units In D5w 500 Ml IV 18 units/kg/hr TITRATE REED 22.045 mls/hr Administration 18 UNITS/KG/HR Lorazepam 1 mg 02/21/18 22:03 02/21/18 22:37 Ativan IVPUSH 02/21/18 22:04 1 mg ONETIME ONE Administration - Radiology Interpretation Free Text/Narrative:: CT without contrast head impression per Vrad 17 mm area of decreased attenuation in the left frontal lobe that is suspicious for an acute ischemic stroke. This area was normal prior head CT. No sign of the hemorrhagic stroke. Further evaluation with MRI should be considered. ASPECTS score of 9. CT pulmonary angiogram with IV contrast impression per vrad: No evidence of pulmonary embolus. No evidence of acute cardiopulmonary. - Re-Assessments/Exams Free Text/Narrative Re-Assessment/Exam: 02/21/18 23:[address] Yeh, recommend heparin bolus and drip due to concern this CVA is from a PFO. Recommend transfer to [place]. Discuss the labs, EKG and imaging with the patient. Recommend a higher-level care. She is from [place]. She would like to go back to [place] rather than [place]. Requests [facility]. Case discussed with Dr. Green, neurologist fondant machine operator, asked we stop the heparin. Asked that she go through the ED. Case discussed with Dr. Farmer, hospitalist fondant machine operator, asked we give am 81 mg aspirin. she accepts the patient in transfer. Patient will have to go by fixed wing as ground is not an option. Departure - Departure Time of Disposition: 23:05 Disposition: DC/Tfer to Acute Hospital 02 Condition: Serious Clinical Impression: CVA (cerebral vascular accident) - Discharge Information *PRESCRIPTION DRUG MONITORING PROGRAM REVIEWED*: Yes *COPY OF PRESCRIPTION DRUG MONITORING REPORT IN PATIENT MARIA GUADALUPE: No Referrals: PCP,Not In Area [Primary Care Provider] - Forms: ED Department Discharge Additional Instructions: Patient ago by fixing to [facility]. Dr. Farmer, hospitalist accepting. - My Orders Last 24 Hours: My Active Orders 02/21/18 19:27 Head wo Cont [CT] Stat 02/21/18 19:42 UA W/MICROSCOPIC [URIN] Stat 02/21/18 20:36 NIH Stroke Scale [RC] ASDIRECTED 02/21/18 21:21 Peripheral IV Care [RC] . DIRECTED Chest PE [Ang Chest] [CT] Stat Sodium Chloride 0.9% [Saline Flush] 10 ml FLUSH ASDIRECTED PRN Peripheral IV Insertion Adult [OM.PC] Routine 02/21/18 21:30 Sodium Chloride 0.9% [Normal Saline] 1,000 ml IV ASDIRECTED 02/21/18 22:18 EKG 12 Lead [EKG Documentation Completion] [RC] STAT 02/21/18 22:45 Cardiac Monitoring [RC] . DIRECTED - Assessment/Plan Last 24 Hours: My Active Orders 02/21/18 19:27 Head wo Cont [CT] Stat 02/21/18 19:42 UA W/MICROSCOPIC [URIN] Stat 02/21/18 20:36 NIH Stroke Scale [RC] ASDIRECTED 02/21/18 21:21 Peripheral IV Care [RC] . DIRECTED Chest PE [Ang Chest] [CT] Stat Sodium Chloride 0.9% [Saline Flush] 10 ml FLUSH ASDIRECTED PRN Peripheral IV Insertion Adult [OM.PC] Routine 02/21/18 21:30 Sodium Chloride 0.9% [Normal Saline] 1,000 ml IV ASDIRECTED 02/21/18 22:18 EKG 12 Lead [EKG Documentation Completion] [RC] STAT 02/21/18 22:45 Cardiac Monitoring [RC] . DIRECTED
[2018-02-21] MEDS ORDERED: Sodium Chloride 0.9% 10 ML Syringe FLUSH PRN (21:21)
[2018-02-21] MEDS ORDERED: Heparin Sodium 5,000 Units/ML Vial IVPUSH ONE (21:26)
[2018-02-21] MEDS ORDERED: Sodium Chloride 0.9% 1,000 ML IV SCH (21:30)
[2018-02-21] MEDS ORDERED: Heparin Sodium/D5W 25,000 UNITS/500 ML BAG IV SCH (21:30)
[2018-02-21] MEDS ORDERED: Heparin Sodium 5,000 Units/ML Vial ONE (21:39)
[2018-02-21] MEDS ORDERED: Sodium Chloride 0.9% 1,000 ML ONE (21:39)
[2018-02-21] MEDS ORDERED: Heparin Sodium/D5W 500 ML ONE (21:39)
[2018-02-21] MEDS ORDERED: LORazepam 2 MG/ML SDV IVPUSH ONE (22:03)
[2018-02-21] MEDS ORDERED: LORazepam 2 MG/ML SDV ONE (22:20)
[2018-02-21] MEDS ORDERED: Aspirin 81 MG Tab.Chew PO ONE (22:26)
[2018-02-21] MEDS ORDERED: Aspirin 81 MG Tab.Chew ONE (22:38)
--- NOTE | 2018-02-25 07:30 | CT ---
CT chest Technique: Multiple axial sections were obtained from above the lung apices inferiorly through the lung bases. Intravenous contrast was utilized. Study has been performed as a pulmonary angiogram protocol. Comparison: No prior chest CT, previous chest x-ray of 09/19/16 is available. Findings: Pulmonary arteries are moderately well-opacified. No filling defects are seen to indicate pulmonary embolism. Mediastinum and hilar regions show no adenopathy or mass. No pericardial thickening is seen. Cyst is noted within the left kidney measuring about 2.2 cm in size. Surgical clips are seen from prior cholecystectomy. No pericardial thickening is seen. Mediastinum and hilar regions are unremarkable. Aorta shows no aneurysm or dissection. Lungs are clear. No pleural effusions are seen. Bone window settings were reviewed which appear within normal limits for the patient's age. Impression: 1. No findings of pulmonary embolism. 2. Incidental findings. Nothing acute is seen on CT study of the chest. Diagnostic code #2 I agree with preliminary report from [facility], finalized at 02/21/18, 11:49 PM Central Time
== END 2018-02-21 23:35 ==
LOC: JD.ED 18:39
DX: I63.9 Cerebral infarction, unspecified (principal); K21.9 Gastro-esophageal reflux disease without esophagitis; F41.9 Anxiety disorder, unspecified; Z79.899 Other long term (current) drug therapy
CPT/HCPCS: 36415; 70450; 71275; 80053; 81001; 83735; 85025; 85379; 85610; 85730; 93005; 96361; 96365; 96375; 99285; A9270; J1644; J2060; J7040; J7050; 93010